=== PATIENT | female | born 1945 | race Caucasian/White ===

== ENCOUNTER 2016-08-30 06:26 | Emergency (ER) | payer OTHER ==
[2016-08-30 06:37] VITALS: BP 136/83; PULSE 72; TEMP 97.7; BMI 23.7
--- NOTE | 2016-08-30 07:03 | PDOC ---
History of Present Illness - General Chief Complaint: Pain Stated Complaint: RT ANKLE PAIN Time Seen by Provider: 08/30/16 06:58 History Source: Patient Exam Limitations: No Limitations - History of Present Illness Initial Comments: 08/30/16 06:58 The patient is a 70-year-old female, with no significant past medical history, presents to the emergency department with right lateral ankle pain for approximately one week. She states that the pain began acutely, while she was walking. It has been persistent ever since. It is a mild, dull ache. It is worsened by palpation and ambulation. She denies any twisting, trauma. She has applied ice frequently and take an intermittent Motrin, with little improvement. She denies distal weakness or paresthesias. She denies skin discoloration/rash. 08/30/16 06:58 Past History - Past Medical History Allergies/Adverse Reactions: Allergies Allergy/AdvReac Type Severity Reaction Status Date / Time Penicillins Allergy Severe Swelling Verified 08/02/14 10:40 shellfish derived Allergy Severe Swelling Verified 04/25/15 06:51 Home Medications: Ambulatory Orders Clonidine HCl 0.1 mg PO DAILY 04/23/15 Multivitamins [Multivit ([facility] Formul[facility])] 1 tab PO DAILY 04/23/15 Anemia: No Asthma: No Cancer: No Cardiac Disorders: No CVA: No COPD: No CHF: No Dementia: No Diabetes: No GI Disorders: No Disorders: No HTN: Yes Hypercholesterolemia: No Liver Disease: No Seizures: No Thyroid Disease: No - Surgical History Abdominal Surgery: No Appendectomy: No Cardiac Surgery: No Cholecystectomy: No Lung Surgery: No Neurologic Surgery: No Orthopedic Surgery: Yes (Bilateral Rotator Cuff Repair,3 SCREWS RT SHOULDER, Bilateral Bunionectomy) - Psycho/Social/Smoking Cessation Hx Anxiety: No Suicidal Ideation: No Smoking Status: No Smoking History: Former smoker Have you smoked in the past 12 months: No Number of Cigarettes Smoked Daily: 0 Information on smoking cessation initiated: No Hx Alcohol Use: No Drug/Substance Use Hx: No Substance Use Type: None Hx Substance Use Treatment: No Review of Systems - Review of Systems Comments:: 08/30/16 07:00 CONSTITUTIONAL: Absent: fever, chills, fatigue EYES: Absent: visual changes ENT: Absent: ear pain, sore throat CARDIOVASCULAR: Absent: chest pain, palpitations, loss of consciousness RESPIRATORY: Absent: cough, SOB GI: Absent: abdominal pain, nausea, vomiting, constipation, diarrhea GENITOURINARY: Absent: dysuria, frequency, hematuria MUSKULOSKELETAL: Present: See history of present illness SKIN: Absent: rash NEURO: Absent: headache, dizziness *Physical Exam - Vital Signs Last Vital Signs Temp Pulse Resp BP Pulse Ox 97.7 F 72 18 136/83 100 08/30/16 06:34 08/30/16 06:34 08/30/16 06:34 08/30/16 06:34 08/30/16 06:34 - Physical Exam Comments: 08/30/16 07:01 GENERAL: Well-appearing, well-nourished. No apparent distress. HEENT: Normocephalic, atraumatic. PERRL, EOM intact. CARDIOVASCULAR: Normal S1, S2. Regular rate and rhythm. PULMONARY: Clear to auscultation bilaterally. ABDOMEN: Soft, non-distended, non-tender. EXTREMITIES: Present: Mild tenderness to palpation over the distal, lateral malleolus. Soft tissue swelling over the distribution of the talofibular ligament, especially distally. Normal ROM in all four extremities. No gross deformities. SKIN: Warm, dry. No rash NEUROLOGICAL: No focal neurological deficits. Medical Decision Making - Medical Decision Making 08/30/16 07:02 The patient is well-appearing and in no acute distress Mechanism of injury is not concerning for fracture [place] foot and ankle rules, however, indicate a need for radiographic studies, secondary to the bony tenderness over the lateral malleolus I have ordered foot and ankle x-rays 08/30/16 07:38 X-ray emergency Department interpretation: No acute disease seen in the area where the patient has tenderness I have told her that she should have the orthopedist review the x-rays and consider further imaging Clinical impression: Talofibular ligament sprain I discussed the physical exam findings, ancillary test results and final diagnoses with the patient. I answered all of the patient's questions. The patient was satisfied with the care received and felt comfortable with the discharge plan and treatment plan. The patient will call their primary care physician within 24 hours to arrange follow-up and will return to the Emergency Department with any new, persistent or worsening symptoms. *DC/Admit/Observation/Transfer Diagnosis at time of Disposition: Ankle sprain - Discharge Dispostion Disposition: HOME Condition at time of disposition: Stable - Referrals Referrals: Chace Mendez MD [Staff Physician] - - Patient Instructions Printed Discharge Instructions: DI for Ankle Sprain Additional Instructions: Return to the emergency department immediately with ANY new, persistent or worsening symptoms. Please see Dr. Mendez as soon as possible for further evaluation. Please tell him that we obtained x-rays in the emergency department, as he will have access to these x-rays, and be able to review them himself. You MUST call and follow up with your doctor tomorrow. Please make sure your doctor reviews the results of your emergency department evaluation.
== END 2016-08-30 08:05 | disposition home or self-care (01) ==
LOC: FER 06:26
DX: S93.409A Sprain of unspecified ligament of unspecified ankle, initial encounter (principal); X58.XXXA Exposure to other specified factors, initial encounter; Y93.9 Activity, unspecified; Y92.9 Unspecified place or not applicable; Z87.891 Personal history of nicotine dependence; I10 Essential (primary) hypertension
CPT/HCPCS: 73610-TC-RT; 73630-TC-RT; 99282-25

== ENCOUNTER 2017-08-04 07:36 | Day surgery (SDC) | payer OTHER ==
[2017-07-24 11:30] VITALS: BMI 23.8
[2017-08-04] MEDS ORDERED: GENTAMICIN SULFATE 0.3% OPHTHALMIC (EYE DROPS) 5ML BOTTLE OS SCH (08:00)
[2017-08-04] MEDS ORDERED: PHENYLEPHRINE 2.5% OPHTH SOLN 15 ML BOTTLE OS SCH (08:00)
[2017-08-04] MEDS ORDERED: CYCLOPENTOLATE HCL 1% OPHTH SOLN 2 ML BOTTLE OS SCH (08:00)
[2017-08-04] MEDS ORDERED: TROPICAMIDE 1% OPHTH SOLN 15 ML BOTTLE OS SCH (08:00)
[2017-08-04] MEDS ORDERED: KETOROLAC TROMETHAMINE 0.5% 5 ML BOTTLE OPTHALMIC OS SCH (08:00)
[2017-08-04] MEDS ORDERED: LIDOCAINE HCL/EPINEPHRINE/PF 20 ML VIAL ONE (08:12)
[2017-08-04] MEDS: PHENYLEPHRINE 2.5% OPHTH SOLN 15 ML BOTTLE ONE ×5 (08:15→08:35)
[2017-08-04] MEDS: CYCLOPENTOLATE HCL 1% OPHTH SOLN 2 ML BOTTLE ONE ×5 (08:15→08:35)
[2017-08-04] MEDS: KETOROLAC TROMETHAMINE 0.5% 5 ML BOTTLE OPTHALMIC ONE ×5 (08:15→08:35)
[2017-08-04] MEDS: GENTAMICIN SULFATE 0.3% OPHTHALMIC (EYE DROPS) 5ML BOTTLE ONE ×5 (08:15→08:35)
[2017-08-04] MEDS: TROPICAMIDE 1% OPHTH SOLN 15 ML BOTTLE ONE ×5 (08:15→08:35)
[2017-08-04] MEDS ORDERED: NEO/POLYMYX B SULF/DEXAMETH OPHTHALMIC 5ML BOTTLE ONE (09:09)
[2017-08-04] MEDS ORDERED: MIDAZOLAM HCL 2 MG/2 ML SINGLE DOSE VIAL ONE (09:19)
[2017-08-04] MEDS ORDERED: ACETAMINOPHEN 325 MG TABLET (FP) PO PRN (09:26)
[2017-08-04] MEDS ORDERED: LIDO 2%/EPI 1:200000 PRESRVFRE (20 ML SDVIAL) INF ONE (09:59)
[2017-08-04] MEDS ORDERED: BUPIVACAINE HCL/PF 0.5% (5MG/ML) 10 ML VIAL IJ ONE (09:59)
[2017-08-04] MEDS ORDERED: TETRACAINE 0.5% OPHTH SOLN 2 ML BOTTLE OS ONE (10:17)
[2017-08-04] MEDS ORDERED: SODIUM HYALURONATE 8.5 MG/0.85 ML DISP.SYRIN IO ONE (10:18)
[2017-08-04] MEDS ORDERED: CHONDROITIN SU A/HYALUR SOD 1 KIT IO ONE (10:18)
[2017-08-04] MEDS ORDERED: NEO/POLYMYX B SULF/DEXAMETH OPHTHALMIC 5ML BOTTLE OS ONE (10:42)
[2017-08-04] MEDS ORDERED: BACITRACIN 3.5 GM OPTHALMIC OINT TUBE OS ONE (10:42)
[2017-08-04] MEDS ORDERED: BETAXOLOL HCL 0.25% OPHTHALMIC 10 ML DROPSBTL OS ONE (10:42)
[2017-08-04 11:34] VITALS: TEMP 97.6
--- NOTE | 2017-08-04 11:34 | OP ---
DATE OF OPERATION: 08/04/2017 PREOPERATIVE DIAGNOSIS: Cataract, left eye. POSTOPERATIVE DIAGNOSIS: Cataract, left eye. PROCEDURE: Cataract extraction via phacoemulsification with insertion of posterior chamber lens implant, left eye. SURGEON: Iker Nguyen MD LOCOMOTIVE CRANE ENGINEER: Ester Lee MD ANESTHESIA: Regional with sedation. COMPLICATIONS: None. ESTIMATED BLOOD LOSS: Less than 1 mL. SPECIMENS: None. DESCRIPTION OF PROCEDURE: The patient was identified in the holding area. After all risks, benefits, and alternatives were explained to the patient, informed consent was obtained. The left eye was marked with a marking pen. The patient entered the operating room on an eye stretcher. After formal time-out was performed, a 3 mL injection of equal parts 2% lidocaine with epinephrine and 0.5% Marcaine was given around the left eye. The left eye was then prepped and draped in the usual sterile fashion. An eyelid speculum was placed beneath the eyelid of the left eye. An inferotemporal paracentesis incision was created using [id number] blade. Viscoelastic was injected into the anterior chamber. A 2.4-mm keratome blade was then used to make a superotemporal incision. A 360-degree continuous curvilinear capsulorrhexis was then created using pancystotome and Utrata forceps. Hydrodissection was performed using balanced saline solution on a cannula. Phacoemulsification was introduced to disassemble and remove the nucleus in its entirety. Irrigation/aspiration was used to remove any remaining cortical material from the eye. The capsular bag was reformed using viscoelastic. An Chema Model [id number] with a power of 18.5 diopter serial number [id number] was inspected and found to be defect free and injected into the capsular bag. Irrigation/aspiration was used to remove any remaining viscoelastic from the eye. The anterior chamber was reformed using balanced saline solution. Intracameral injections of Miochol and Miostat were then administered, and the pupil came down and was round. All wounds were hydrated with balanced saline solution and noted to be watertight. The anterior chamber was deep. The lens was perfectly centered in the capsular bag. The eye had an adequate pressure, and there was a red reflex present. All wounds were hydrated with balanced saline solution and noted to be watertight. Topical antibiotic eyedrops and ointment were then administered to the left eye. The eyelid speculum was removed from the left eye. The left eye was patched and shielded. The patient tolerated the procedure well and left the operating room in stable condition to follow up in the eye clinic tomorrow morning at 9 o'clock. IKER NGUYEN M.D. [id number]
[2017-08-04 11:37] VITALS: BP 130/76; PULSE 64
== END 2017-08-04 11:35 | disposition home or self-care (01) ==
LOC: FASU 07:36
PROVIDERS: ATTEND Ophthalmology
PROC: 08RK3JZ Replacement of Left Lens with Synthetic Substitute, Percutaneous Approach (ICD-10-PCS; principal; 2017-08-04 10:16)
DX: H26.9 Unspecified cataract (principal)

== ENCOUNTER 2017-10-13 07:06 | Day surgery (SDC) | payer OTHER ==
[2017-10-05 09:47] VITALS: BMI 24.2
[2017-10-13] MEDS: TROPICAMIDE 1% OPHTH SOLN 15 ML BOTTLE ONE ×5 (07:40→08:00)
[2017-10-13] MEDS: CYCLOPENTOLATE HCL 1% OPHTH SOLN 2 ML BOTTLE ONE ×5 (07:40→08:00)
[2017-10-13] MEDS: KETOROLAC TROMETHAMINE 0.5% 5 ML BOTTLE OPTHALMIC ONE ×5 (07:40→08:00)
[2017-10-13] MEDS: PHENYLEPHRINE 2.5% OPHTH SOLN 15 ML BOTTLE ONE ×5 (07:40→08:00)
[2017-10-13] MEDS: GENTAMICIN SULFATE 0.3% OPHTHALMIC (EYE DROPS) 5ML BOTTLE ONE ×5 (07:40→08:00)
[2017-10-13] MEDS ORDERED: GENTAMICIN SULFATE 0.3% OPHTHALMIC (EYE DROPS) 5ML BOTTLE OD SCH (08:00)
[2017-10-13] MEDS ORDERED: TROPICAMIDE 1% OPHTH SOLN 15 ML BOTTLE OD SCH (08:00)
[2017-10-13] MEDS ORDERED: KETOROLAC TROMETHAMINE 0.5% 5 ML BOTTLE OPTHALMIC OD SCH (08:00)
[2017-10-13] MEDS ORDERED: CYCLOPENTOLATE HCL 1% OPHTH SOLN 2 ML BOTTLE OD SCH (08:00)
[2017-10-13] MEDS ORDERED: PHENYLEPHRINE 2.5% OPHTH SOLN 15 ML BOTTLE OD SCH (08:00)
[2017-10-13] MEDS ORDERED: BETAXOLOL HCL 0.25% OPHTHALMIC 10 ML DROPSBTL ONE (09:10)
[2017-10-13] MEDS ORDERED: BACITRACIN/POLYMYXIN OPH OINT 3.5 GM TUBE ONE (09:10)
[2017-10-13] MEDS ORDERED: TETRACAINE 0.5% OPHTH SOLN 2 ML BOTTLE ONE (09:10)
[2017-10-13] MEDS ORDERED: EPI-SHUGARCAINE (EPINEPHRINE 0.025% & LIDOCAINE-PF 0.75%) 4ML ONE (09:10)
[2017-10-13] MEDS ORDERED: POVIDONE-IODINE 5% OPHTHALMIC PREP 30 ML SOLUTION ONE (09:11)
[2017-10-13] MEDS ORDERED: NEO/POLYMYX B SULF/DEXAMETH OPHTHALMIC 5ML BOTTLE ONE (09:11)
[2017-10-13] MEDS ORDERED: ACETYLCHOLINE 1:100 INTRA-OCUL 20 MG/2 ML KIT ONE (09:11)
[2017-10-13] MEDS ORDERED: MIDAZOLAM HCL 2 MG/2 ML SINGLE DOSE VIAL ONE (09:34)
[2017-10-13] MEDS ORDERED: BSS (NA/CA/MG/K) BALANCED SALT SOLUTION OPHTH SOLN 15 ML BOTTLE ONE (10:23)
[2017-10-13] MEDS ORDERED: ACETAMINOPHEN 325 MG TABLET (FP) PO PRN (10:35)
--- NOTE | 2017-10-13 11:10 | OP ---
DATE OF OPERATION: 10/13/2017 PREOPERATIVE DIAGNOSIS: Cataract, right eye. POSTOPERATIVE DIAGNOSIS: Cataract, right eye. PROCEDURE: Cataract extraction via phacoemulsification with insertion of posterior chamber lens implant, right eye. SURGEON: Iker Nguyen MD DISH WASHER: Ester Lee MD ANESTHESIA: Topical with sedation. ESTIMATED BLOOD LOSS: Less than 1 mL. SPECIMENS: None. COMPLICATIONS: None. DESCRIPTION OF PROCEDURE: The patient was identified in the holding area. After all risks, benefits, and alternatives were explained to the patient, informed consent was obtained. The right eye was marked with a marking pen. The patient then entered the operating room on an eye stretcher. After a formal timeout was performed, tetracaine eye drops were instilled onto the right eye. The right eye was then prepped and draped in the usual sterile fashion. An eyelid speculum was placed beneath the eyelids of the right eye. A superotemporal paracentesis incision was created using a 15-degree blade. Preservative-free intracameral epinephrine and lidocaine were then administered. Viscoelastic was then administered to the anterior chamber. An inferotemporal incision was created using a 2.4-mm keratome blade. A 360-degree, continuous curvilinear capsulorrhexis was then created using bent cystotome and Utrata forceps. Hydrodissection was performed using balanced saline solution on a cannula. Phacoemulsification was introduced to disassemble and remove the nucleus in its entirety. Irrigation/aspiration was then used to remove any remaining cortical material from the eye. The capsular bag was reformed using viscoelastic. An Chema model [id number] with a power of 17.5 diopters, serial number [id number] was inspected and found to be defect free and injected into the capsular bag. Irrigation/aspiration was used to remove any remaining viscoelastic from the eye. The anterior chamber was reformed using balanced saline solution. Intracameral injections of Miochol and Miostat were then administered, and the pupil came down and was round. All wounds were hydrated with balanced saline solution, noted to be watertight. There was a red reflex present. The lens was perfectly centered in the capsular bag. The eye had an adequate pressure, and the anterior chamber was deep. Topical antibiotic eye drops and ointment were then administered to the right eye. The eyelid speculum was removed from the right eye. The right eye was shielded. The patient tolerated the procedure well and left the operating room in stable condition to follow up in the eye clinic tomorrow morning at 9:00. IKER NGUYEN M.D. [id number]
[2017-10-13 11:20] VITALS: TEMP 98.1
[2017-10-13 11:21] VITALS: BP 149/86; PULSE 66
== END 2017-10-13 11:15 | disposition home or self-care (01) ==
LOC: FASU 07:06
PROVIDERS: ATTEND Ophthalmology
PROC: 08RJ3JZ Replacement of Right Lens with Synthetic Substitute, Percutaneous Approach (ICD-10-PCS; principal; 2017-10-13 09:53)
DX: H26.9 Unspecified cataract (principal)

== ENCOUNTER 2018-04-01 08:00 | Inpatient (IN) | payer OTHER ==
--- NOTE | 2018-04-01 07:33 | HP ---
Admitting History and Physical - Admission Chief Complaint: right knee osteoarthritis x years History of Present Illness: 72 year old female presents today in regard to her right knee. Longstanding history of right knee osteoarthritis. Patient complains of pain, limited ROM, difficulty ambulating and difficulty completing ADLs. Patient has failed all conservative treatment measures including PO medications, activity modification , injections and exercise programs. At this point, patient would like to proceed with surgical intervention - right total knee arthroplasty, MAKOplasty. History Source: Patient - Past Medical History Cardiovascular: Yes: HTN ...: No - Past Surgical History Additional Past Surgical History: See written history & physical. - Smoking History Smoking history: Former smoker Have you smoked in the past 12 months: No Aproximately how many cigarettes per day: 20 If you are a former smoker, when did you quit?: 2004 - Alcohol/Substance Use Hx Alcohol Use: No Home Medications - Allergies Allergies/Adverse Reactions: Allergies Allergy/AdvReac Type Severity Reaction Status Date / Time Penicillins Allergy Severe Swelling Verified 03/11/18 12:26 shellfish derived Allergy Severe Swelling Verified 03/11/18 12:26 - Home Medications Home Medications: Ambulatory Orders Clonidine HCl 0.1 mg PO DAILY 04/23/15 Multivitamins [Multivit ([facility] Formul[facility])] 1 tab PO DAILY 04/23/15 Review of Systems - Review of Systems Musculoskeletal: reports: Crepitus (right knee), Decreased ROM (right knee), Joint Pain (right knee), Joint Swelling (right knee) Physical Examination Constitutional: Yes: Well Nourished, No Distress Eyes: Yes: Conjunctiva Clear HENT: Yes: Atraumatic, Normocephalic Neck: Yes: Supple Cardiovascular: Yes: Regular Rate and Rhythm Respiratory: Yes: Regular Gastrointestinal: Yes: Soft ...Rectal Exam: Yes: Deferred Musculoskeletal: Yes: Joint Stiffness (right knee), Joint Swelling (right knee) Assessment/Plan 72 year old female presents today in regard to her right knee. Longstanding history of right knee osteoarthritis. Patient complains of pain, limited ROM, difficulty ambulating and difficulty completing ADLs. Patient has failed all conservative treatment measures including PO medications, activity modification , injections and exercise programs. At this point, patient would like to proceed with surgical intervention - right total knee arthroplasty, MAKOplasty. Pros, cons, risks, benefits and alternatives of a right total knee arthroplasty - MAKOplasty were discussed with the patient at length. Patient confirms her understanding and consents to proceed with a right total knee arthroplasty - MAKOplasty.
[~2018-04-01 08:00] MED LIST: CEFAZOLIN 2 GM in DEXTROSE 5%-WATER - 50 ML IVPB ONE; CELECOXIB 200 MG CAPSULE PO ONE; GABAPENTIN 300 MG CAPSULE (FP) PO ONE; PANTOPRAZOLE 40 MG TABLET (FP) PO ONE; ROPIVICAINE 0.2%/MORPH PF/KETOROLAC - 51ML DISP.SYRINGE IA ONE; TRANEXAMIC ACID 1000 MG/10 ML VIAL IVPUSH ONE; oxyCODONE HCL 10 MG SUSTAINED ACTING TABLET PO ONE
[2018-04-01] MEDS ORDERED: CELECOXIB 200 MG CAPSULE ONE (09:31)
[2018-04-01 09:35] VITALS: BMI 25.2
[2018-04-01] MEDS ORDERED: MIDAZOLAM HCL 2 MG/2 ML SINGLE DOSE VIAL ONE (11:52)
[2018-04-01] MEDS ORDERED: BUPIVACAINE LIPOSOME/PF (EXPAREL) 266 MG/20 ML VIAL ONE (11:52)
[2018-04-01] MEDS ORDERED: BUPIVACAINE HCL/PF (5 MG/ML) 30 ML VIAL IJ ONE (11:53)
[2018-04-01] MEDS ORDERED: SODIUM CHLORIDE 0.9% P/F 10 ML VIAL IJ ONE ×2 (11:53→15:11)
[2018-04-01] MEDS ORDERED: SUCCINYLCHOLINE CHLORIDE 200 MG/10 ML VIAL ONE (14:03)
[2018-04-01] MEDS ORDERED: ePHEDrine SULFATE 50 MG/1 ML AMPULE ONE (14:04)
[2018-04-01] MEDS ORDERED: ceFAZolin SODIUM 1 GM VIAL ONE (15:04)
[2018-04-01] MEDS ORDERED: TRANEXAMIC ACID 1000 MG/10 ML VIAL ONE (15:10)
[2018-04-01] MEDS ORDERED: LIDOCAINE HCL/PF 2% SDV 5ML VIAL ONE (15:10)
[2018-04-01] MEDS ORDERED: oxyCODONE HCL 5 MG TABLET PO PRN (15:52)
[2018-04-01] MEDS ORDERED: ONDANSETRON 4 MG/2 ML VIAL IVPUSH PRN ×2 (15:52→18:44)
[2018-04-01] MEDS ORDERED: ACETAMINOPHEN 325 MG TABLET (FP) PO SCH (16:00)
[2018-04-01] MEDS ORDERED: LACTATED RINGERS SOLUTION 1,000 ML IV SCH ×2 (16:00→18:45)
[2018-04-01] MEDS ORDERED: PROPOFOL 20 ML ONE (16:00)
[2018-04-01] MEDS ORDERED: VANCOMYCIN 1,000 MG VIAL (RESTRICTED TO ID ONLY) IVPB ONE (16:05)
[2018-04-01] MEDS ORDERED: TRANEXAMIC ACID 1000 MG/10 ML VIAL IVPB ONE (16:06)
[2018-04-01] MEDS ORDERED: ACETAMINOPHEN INJECTION 100 ML IVPB ONE (17:39)
[2018-04-01] MEDS ORDERED: KETOROLAC TROMETHAMINE 30 MG/1 ML VIAL ONE (17:39)
[2018-04-01] MEDS ORDERED: traMADol HCL 50 MG TABLET ONE (17:40)
[2018-04-01] MEDS ORDERED: ACETAMINOPHEN 1000 MG/100 ML VIAL (NON FORMULARY) IVPB ONE ×2 (18:34→18:41)
--- NOTE | 2018-04-01 18:34 | OP ---
Operative Note - Note: Operative Date: 04/01/18 Pre-Operative Diagnosis: right knee OA Operation: right TKA SAE Surgeon: Jude Dong Head Field Hockey Coach: Heather Kerr Estimated Blood Loss (mls): 100
[2018-04-01] MEDS ORDERED: KETOROLAC TROMETHAMINE 15 MG/ML VIAL IVPUSH ONE (18:35)
[2018-04-01] MEDS ORDERED: MAGNESIUM HYDROX 2400MG/30ML ORAL SUSPENSION 30 ML CUP PO PRN (18:44)
[2018-04-01] MEDS ORDERED: MAG HYDROX/AL HYDROX/SIMETH 30 ML UNIT-DOSE CUP PO PRN (18:44)
[2018-04-01] MEDS ORDERED: traMADol HCL 50 MG TABLET PO ONE (18:50)
[2018-04-01] MEDS: GABAPENTIN 300 MG CAPSULE (FP) PO SCH (21:42)
[2018-04-01] MEDS: SENNOSIDES/DOCUSATE COMBO (SENNA PLUS) TABLET (UD) PO SCH (21:43)
[2018-04-01] MEDS: CELECOXIB 200 MG CAPSULE PO SCH (21:43)
[2018-04-01] MEDS: ASCORBIC ACID 500 MG TABLET (FP) PO SCH (21:43)
[2018-04-01] MEDS ORDERED: GABAPENTIN 300 MG CAPSULE (FP) PO SCH (22:00)
[2018-04-01] MEDS: oxyCODONE HCL 5 MG TABLET PO PRN (22:44)
[2018-04-02] MEDS: traMADol HCL 50 MG TABLET PO SCH ×4 (00:22→18:10)
[2018-04-02] MEDS: ACETAMINOPHEN 325 MG TABLET (FP) PO SCH ×4 (00:23→18:10)
[2018-04-02] MEDS: KETOROLAC TROMETHAMINE 30 MG/1 ML VIAL IVPUSH SCH ×4 (00:24→12:58)
[2018-04-02] MEDS ORDERED: DEXAMETHASONE SOD PHOSPHATE 10 MG/1 ML VIAL IVPB ONE (02:00)
[2018-04-02] MEDS: CEFAZOLIN 1 GM/D5W 1 GM/50 ML BAG IVPB SCH ×2 (02:05→09:53)
[2018-04-02] MEDS: ASPIRIN 325 MG TABLET PO SCH (08:27)
[2018-04-02 08:42] LABS: HEMOGLOBIN 11.7 GM/dl (10.7-15.3); MCH 32.7 pg (25.7-33.7); MCHC 34.4 g/dl (32.0-36.0); MEAN CELL VOLUME 95.2 fl (80-96); PLATELET COUNT 392 K/MM3 (134-434); RBC 3.58 M/mm3 (3.60-5.2); RDW 11.5 % (11.6-15.6); WHITE BLOOD COUNT 12.8 K/mm3 (4.0-10.8)
[2018-04-02 08:50] LABS: ANION GAP 12 MMOL/L (8-16); BLOOD UREA NITROGEN 12 mg/dl (7-18); CHLORIDE 101 mmol/L (98-107); CO2 23 mmol/L (22-28); GLUCOSE,RANDOM 161 mg/dl (74-106); POTASSIUM 4.6 mmol/L (3.5-5.1); SODIUM 136 mmol/L (136-145)
[2018-04-02] MEDS: GABAPENTIN 300 MG CAPSULE (FP) PO SCH ×2 (09:51→21:50)
[2018-04-02] MEDS: CELECOXIB 200 MG CAPSULE PO SCH ×2 (09:52→21:51)
[2018-04-02] MEDS: PANTOPRAZOLE 40 MG TABLET (FP) PO SCH (09:52)
[2018-04-02] MEDS: ASCORBIC ACID 500 MG TABLET (FP) PO SCH ×2 (09:52→21:51)
[2018-04-02] MEDS: SENNOSIDES/DOCUSATE COMBO (SENNA PLUS) TABLET (UD) PO SCH ×2 (09:52→21:50)
[2018-04-02] MEDS: cloNIDine HCL 0.1 MG TABLET PO SCH (09:53)
[2018-04-02] MEDS: oxyCODONE HCL 5 MG TABLET PO PRN (09:54)
[2018-04-02] MEDS: MULTIVITAMINS (DAILY MVI) TABLET (FP) PO SCH (09:54)
[2018-04-02] MEDS ORDERED: MULTIVITAMINS (DAILY MVI) TABLET (FP) PO SCH (10:00)
--- NOTE | 2018-04-02 10:50 | PN ---
Progress Note, Physician Chief Complaint: s/p right total knee replacement under spinal anesthesia History of Present Illness: post op day one, adductor canal block for post op pain - Current Medication List Current Medications: Active Medications Acetaminophen (Tylenol -) 650 mg PO Q6H [facility] Stop: 04/04/18 00:00 Last Admin: 04/02/18 05:56 Dose: 650 mg Al Hydroxide/Mg Hydroxide (Mylanta Oral Suspension -) 30 ml PO Q4H PRN PRN Reason: DYSPEPSIA Ascorbic Acid (Vitamin C -) 500 mg PO BID [facility] Last Admin: 04/02/18 09:52 Dose: 500 mg Aspirin (Asa -) 325 mg PO DAILY@0800 [facility] Last Admin: 04/02/18 08:27 Dose: 325 mg Celecoxib (Celebrex -) 200 mg PO BID [facility] Last Admin: 04/02/18 09:52 Dose: 200 mg Clonidine (Catapres -) 0.1 mg PO DAILY [facility] Last Admin: 04/02/18 09:53 Dose: 0.1 mg Gabapentin (Neurontin -) 300 mg PO BID [facility] Last Admin: 04/02/18 09:51 Dose: 300 mg Lactated Ringer's (Lactated Ringers Solution) 1,000 mls @ 125 mls/hr IV ASDIR [facility] Ketorolac Tromethamine (Toradol Injection -) 15 mg IVPUSH Q6H [facility] Stop: 04/02/18 12:46 Last Admin: 04/02/18 05:55 Dose: 15 mg Magnesium Hydroxide (Milk Of Magnesia -) 30 ml PO PRN PRN PRN Reason: CONSTIPATION Multivitamins/Minerals/Vitamin C (Tab-A-Vit -) 1 tab PO DAILY [facility] Last Admin: 04/02/18 09:54 Dose: 1 tab Ondansetron HCl (Zofran Injection) 4 mg IVPUSH Q6H PRN PRN Reason: NAUSEA AND/OR VOMITING Oxycodone HCl (Roxicodone -) 5 mg PO Q3H PRN PRN Reason: PAIN LEVEL 1-5 Oxycodone HCl (Roxicodone -) 10 mg PO Q3H PRN PRN Reason: PAIN LEVEL 6-10 Last Admin: 04/02/18 09:54 Dose: 10 mg Pantoprazole Sodium (Protonix -) 40 mg PO DAILY [facility] Last Admin: 04/02/18 09:52 Dose: 40 mg Senna/Docusate Sodium (Pericolace -) 1 tablet PO BID [facility] Last Admin: 04/02/18 09:52 Dose: 1 tablet Tramadol HCl (Ultram -) 50 mg PO Q6HPO [facility] Last Admin: 04/02/18 05:57 Dose: 50 mg - Objective Vital Signs: Vital Signs Temperature 98.2 F 04/02/18 05:31 Pulse Rate 62 04/02/18 05:31 Respiratory Rate 18 04/02/18 05:31 Blood Pressure 114/66 04/02/18 05:31 O2 Sat by Pulse Oximetry (%) 97 04/02/18 05:31 Constitutional: Yes: Well Nourished Cardiovascular: Yes: WNL Respiratory: Yes: WNL Gastrointestinal: Yes: WNL Labs: CBC, BMP 04/02/18 07:20 04/02/18 07:20 Assessment/Plan No adverse effect from anesthetic, dept of anesthesia will sign off care at this time.
--- NOTE | 2018-04-02 16:21 | SURG ---
Surgery Peoplesoft Consultant Note Peoplesoft Consultant: Heather Kerr PA-C Date of Service: 04/01/18 Diagnosis: right knee OA Procedure: right TKA SAE Fallon was present for the entirety of the operative procedure. For further detail, please refer to operative report. Visit type - Case Type Case Type: Scheduled - Emergency Emergency Visit: No - New patient This patient is new to me today: Yes Date on this admission: 04/02/18
--- NOTE | 2018-04-02 21:25 | PN ---
Progress Note (short form) - Note Progress Note: Pt seen and examined. Doing well. Has not voided yet. Block wearing off - is able to straight leg raise. AVSS Selected Entries 04/02/18 04/02/18 17:00 20:38 Temperature 97.8 F Pulse Rate 66 Respiratory 16 Rate Blood Pressure 120/68 O2 Sat by Pulse 98 Oximetry (%) Oxygen Delivery Room Air Method Laboratory Tests 04/02/18 04/02/18 07:20 07:20 WBC 12.8 H Hgb 11.7 Hct 34.0 D Plt Count 392 Sodium 136 Potassium 4.6 Chloride 101 Carbon Dioxide 23 Anion Gap 12 BUN 12 Creatinine 1.0 Creat Clearance w eGFR 54.35 Random Glucose 161 H D Calcium 9.0 Gen: NAD RLE: c/d/i, able to SLR, NVID distally A/P s/p R TKA PT/OOB - WBAT. May be able to maintain quad strength in the AM. If not , ambulate with knee brace. D/C to rehab in AM. F/U in office in 10-14 days.
--- NOTE | 2018-04-02 21:32 | DS ---
Physical Examination Vital Signs: Vital Signs Temperature 97.8 F 04/02/18 21:15 Pulse Rate 17 L 04/02/18 21:15 Respiratory Rate 17 04/02/18 21:15 Blood Pressure 118/58 04/02/18 21:15 O2 Sat by Pulse Oximetry (%) 98 04/02/18 21:15 Labs: CBC, BMP 04/02/18 07:20 04/02/18 07:20 Discharge Summary Reason For Visit: RIGHT KNEE OSTEOARTHRITIS Current Active Problems Osteoarthritis of right knee (Acute) Procedures: Principal: right knee replacement Hospital Course: Admitted for elective surgery. Procedure performed without complications. Pt received postoperative antibiotic prophylaxis and DVT ppx. Ambulated with physical therapy. Stable for discharge to rehab facility with outpatient followup. Condition: Stable - Instructions Diet, Activity, Other Instructions: Dr. Lou - Knee Replacement Instructions Keep the Aquacel dressing on until removed by Dr. Lou in 10-14 days - it is antibacterial and waterproof and you can shower with it on. DO NOT REMOVE AQUACEL DRESSING AT REHAB FACILITY WITHOUT PERMISSION FROM DR. LOU! KEEP THE DRESSING ON TO REDUCE INFECTION RISK! Call the office for a follow-up appointment with Dr. Lou in 10-14 days. [phone] Take one Aspirin 325mg daily for 6 weeks to prevent blood clots in your legs. Take one Pantoprazole 40mg daily for 6 weeks to protect against heartburn and ulcers. Take Cephalexin (antibiotic) 3x/day for 10 days to help prevent skin infection. Take Celebrex 200mg daily for 30 days to reduce swelling and inflammation. Take a multivitamin, stool softener, and extra Vitamin C supplement daily. For pain: *Mild pain (1-3/10): Take 1 Tramadol tablet every 4 hours as needed. Moderate pain (4-6/10): Take 1 Tramadol tablet and 1 Percocet tablet every 4 hours as needed. Severe pain (7-10/10): Take 1 Tramadol tablet and 2 Percocet tablets every 4 hours as needed. Activity: You can put as much weight on the operative leg as you want. After you get home from rehab, there will be a physical therapist coming to your house to help you walk around and bend/straighten your knee. After your follow-up appointment with Dr. Lou, you will be sent for more intensive outpatient physical therapy which will include machines and equipment that the home therapist cannot bring to your house. Always use a walker or cane for balance and to prevent falls. Expect to see swelling/bruising from the operative site all the way down to your toes. Wear the compression stocking on the operative side during the day to minimize how much swelling there is in your foot/ankle. Don't wear the stocking at night. You don't have to wear a stocking on the other side. Disposition: LONG TERM FACILITY - Home Medications Comprehensive Discharge Medication List: Ambulatory Orders Clonidine HCl 0.1 mg PO DAILY 04/23/15 Multivitamins [Multivit ([facility] Formul[facility])] 1 tab PO DAILY 04/23/15 Ascorbic Acid [Vitamin C -] 500 mg PO BID tablet 04/02/18 Aspirin [ASA -] 325 mg PO DAILY@0800 tablet 04/02/18 Celecoxib [CeleBREX -] 200 mg PO DAILY #30 capsule 04/02/18 Cephalexin Monohydrate [Keflex -] 500 mg PO TID #30 capsule 04/02/18 Oxycodone HCl/Acetaminophen [Percocet 5-325 mg Tablet] 1 - 2 tab PO Q4H PRN #60 tablet MDD 10 04/02/18 Pantoprazole Sodium [Protonix -] 40 mg PO DAILY #40 tablet.ec 04/02/18 Sennosides/Docusate Sodium [Pericolace -] 1 tablet PO BID tablet 04/02/18 traMADol HCL [Ultram -] 50 mg PO Q4H PRN #42 tablet MDD 6 04/02/18
[2018-04-03] MEDS: ACETAMINOPHEN 325 MG TABLET (FP) PO SCH ×2 (00:04→06:15)
[2018-04-03] MEDS: traMADol HCL 50 MG TABLET PO SCH ×2 (00:04→06:15)
[2018-04-03 07:06] VITALS: BP 122/57; PULSE 64; TEMP 97.7
[2018-04-03] MEDS: ASPIRIN 325 MG TABLET PO SCH (08:00)
[2018-04-03 08:32] LABS: HEMATOCRIT 34.5 % (32.4-45.2); HEMOGLOBIN 11.2 GM/dl (10.7-15.3); MCH 31.2 pg (25.7-33.7); MCHC 32.6 g/dl (32.0-36.0); MEAN CELL VOLUME 95.8 fl (80-96); MEAN PLT VOLUME 7.4 fl (7.5-11.1); PLATELET COUNT 443 K/MM3 (134-434); RDW 11.4 % (11.6-15.6); WHITE BLOOD COUNT 12.8 K/mm3 (4.0-10.8)
[2018-04-03] MEDS: MULTIVITAMINS (DAILY MVI) TABLET (FP) PO SCH (10:19)
[2018-04-03] MEDS: CELECOXIB 200 MG CAPSULE PO SCH (10:19)
[2018-04-03] MEDS: cloNIDine HCL 0.1 MG TABLET PO SCH (10:19)
[2018-04-03] MEDS: GABAPENTIN 300 MG CAPSULE (FP) PO SCH (10:19)
[2018-04-03] MEDS: PANTOPRAZOLE 40 MG TABLET (FP) PO SCH (10:19)
[2018-04-03] MEDS: SENNOSIDES/DOCUSATE COMBO (SENNA PLUS) TABLET (UD) PO SCH (10:19)
[2018-04-03] MEDS: ASCORBIC ACID 500 MG TABLET (FP) PO SCH (10:20)
--- NOTE | 2018-04-12 10:28 | PATH ---
Surgical Pathology Report Patient Name: CEE HUNG Med. Rec. #: [id number] /Age/Gender: 1945 (Age: 72) / F Account: [id number] Location: [facility] Taken: 04/01/2018 Received: 04/01/2018 Reported: 04/05/2018 Physicians: Jude Dong M.D. Specimen(s) Received BONE OF RIGHT KNEE Clinical History Right knee osteoarthritis Final Diagnosis BONE, KNEE, RIGHT, TOTAL KNEE REPLACEMENT MAKOPLASTY: BONE WITH DEGENERATIVE JOINT DISEASE, DENSE FIBROCONNECTIVE TISSUE, AND FIBROADIPOSE TISSUE. Electronically Signed Kylie Glass M.D. Gross Description Received in formalin labeled "bone of right knee," is an 11.0 x 7.5 x 2.0 cm aggregate of multiple portions of bone and soft tissue. The tibial plateau measures 7.0 x 5.3 x 1.5 cm. There is a 1.3 cm in greatest dimension area of eburnation present. The remaining articular surface is zamorano-brown and diffusely granular. The underlying trabecular bone is yellow and hard. [employer] Manager sections are submitted in one cassette, following decalcification. 04/02/201804/02/2018
--- NOTE | 2018-04-13 13:32 | SPEC ---
DATE OF OPERATION: 04/01/2018 PREOPERATIVE DIAGNOSIS: Right knee osteoarthritis. POSTOPERATIVE DIAGNOSIS: Right knee osteoarthritis. PROCEDURE: Right total knee arthroscopy with MAKOplasty robotic navigation. ATTENDING SURGEON: Renetta Lou MD MECHANOTHERAPIST: DAVID Nelson ANESTHESIA: Spinal plus sedation. ESTIMATED BLOOD LOSS: 100 mL. COMPLICATIONS: None. DISPOSITION: The patient was transferred to the PACU in stable condition. IMPLANTS USED: [place] Triathlon size 3 femoral component, size 2 tibial component, 13-mm total stabilized polyethylene component, 29-mm patellar component. INDICATIONS: This is a 72-year-old female who presented to the office complaining of severe right knee pain. She was seen and examined by Dr. Lou and diagnosed with severe right knee osteoarthritis. The patient was initially treated nonoperatively with injections, medications, and physical therapy but continues to have severe pain and ambulatory dysfunction. She was, therefore, indicated for a right total knee replacement with MAKOplasty robotic navigation. The risks, benefits, and alternatives to the surgery were explained to the patient in greater detail, and she elected to proceed with the procedure. DESCRIPTION OF PROCEDURE: On the day of surgery, the patient was taken to the operating room and placed on the OR table. Spinal anesthesia was administered by the anesthesiologist. The patient was then positioned supine on the table and all bony prominences were padded. The knee was then prepped and draped in the usual sterile fashion and intravenous antibiotics were given for infection prophylaxis. A surgical time-out was then performed with the team, and the patients identity, procedure, side, availability of implants, and the administration of antibiotics was confirmed. With the knee flexed, a midline incision was made and carried down through the subcutaneous fat to the underlying retinaculum. A medial parapatellar arthrotomy was performed. This was followed by a subperiosteal dissection of the tissue off the proximal, medial tibia. A portion of fat pad was removed from under the patellar tendon, and a small portion of fat was excised off the distal supracondylar femur. Electrocautery and an Aquamantys bipolar sealing device were used to achieve hemostasis. The knee was then flexed further, and the anterior horn of the lateral meniscus was released from the midline. Next, the anterior and posterior cruciate ligaments were transected. Grade 4 changes were noted diffusely throughout the knee. Femoral and tibial checkpoints were then placed in the appropriate location using a mallet. Two parallel bicortical self-drilling pins were placed in the tibial diaphysis after making stab incisions and bluntly dissecting down to bone. Two pins were then placed in the distal supracondylar femur. The [employer] navigation arrays were then attached to both the femoral and tibial pins and the lower extremity was then registered to the robotic navigation device using various joint movements, as well as inputting several dozen reference points. The knee was then taken through a full range of motion with a corrective force applied. Alignment in varus/valgus as well as flexion/extension and soft tissue balance was measured in various positions. The navigation device showed a numerical and graphic representation of the soft tissue balance. The components were repositioned virtually using the software until optimal soft tissue balance was achieved on screen. Once this was accomplished, the final plan was saved and sent to the robot. Self-retaining retractors were then placed at the joint line for exposure and protection of the collateral ligaments. The robot was brought into the sterile field and registered with the navigation device. The robotic arm with attached oscillating saw blade was then used to perform femoral and tibial bone cuts as per the saved software plan. The femoral box cut was made using the appropriately sized manual cutting guide. The knee was then irrigated. Trial components were placed, and the knee was taken through a full range of motion to assess soft tissue balance and alignment. The range of motion was found to be excellent and the soft tissue balance was optimal and according to plan. The knee was then put into extension and the patella everted. The synovium around the patella was circumscribed with electrocautery. A caliper was used to measure the patellar thickness and a saw was then used to resect the patella at the chondro-osseous junction. The cut surface was then sized and drilled for the appropriate patellar button, with care taken to medialize it. A trial patella was then placed, and the knee was again taken through a full range of motion. The knee was found to have both good balance and good patellar tracking. All of the components were removed except the tibial base plate. The appropriate instrumentation was used to drill and punch the proximal tibia for the keel of the final component. All bony surfaces were then cleaned with pulsatile lavage and dried. Bone cement was then prepared on the back table, and final components were cemented in place in the usual fashion. Extruded cement was removed. The polyethylene trial was placed, the knee was put into extension, and axial pressure was applied for compression while the cement hardened. The patellar button was similarly cemented into place. Once the cement had hardened, the knee was taken through a full range of motion to assess stability, balance, and patellar tracking. This was found to be optimal and the trial polyethylene was exchanged for the appropriately sized real implant. The wound was then thoroughly irrigated with normal saline. A 3-minute dilute Betadine lavage was performed. The knee was again irrigated using a pulsatile lavage device. A periarticular injection was used to locally infiltrate the capsular tissues surrounding the implant and prosthesis. Then No. 1 Polysorb and 0 V-Lock 180 barbed sutures were used to close the arthrotomy. Then No. 1 Polysorb and 2-0 V-Lock 90 sutures were used in the subcutaneous tissues. Then 4-0 undyed Vicryl and Dermabond skin adhesive was used to close the stab incisions made for the navigation pins. The skin was closed using both 3-0 V-Lock 90 suture in a running subcuticular fashion and Dermabond skin adhesive. Once this was completed a sterile Aquacel dressing and compressive Vincenzo-wrap was applied. The patient was then awakened and taken to the PACU in stable condition. RENETTA LOU M.D. [id number]
== END 2018-04-03 17:30 | DRG 470 ==
LOC: FM/S 08:25
PROVIDERS: ADMIT Student in an Organized Health Care Education/Training Program; ATTEND Student in an Organized Health Care Education/Training Program
PROC: 8E0Y0CZ Robotic Assisted Procedure of Lower Extremity, Open Approach (ICD-10-PCS; 2018-04-01)
PROC: 0SRC0JZ Replacement of Right Knee Joint with Synthetic Substitute, Open Approach (ICD-10-PCS; principal; 2018-04-01 15:30)
DX: M17.11 Unilateral primary osteoarthritis, right knee (principal); I10 Essential (primary) hypertension; Z87.891 Personal history of nicotine dependence
CPT/HCPCS: 36415; 73560-TC-RT-FY; 80048; 85027; 88305-TC; 88311-TC; 94760; 97116-GP; 97162-GP; J0131; J0735; J1100

== ENCOUNTER 2018-05-03 10:43 | Inpatient (IN) | payer OTHER ==
--- NOTE | 2018-05-03 12:03 | PDOC ---
History of Present Illness - General Chief Complaint: Injury Stated Complaint: RT KNEE INJURY Time Seen by Provider: 05/03/18 11:20 History Source: Patient Exam Limitations: No Limitations - History of Present Illness Initial Comments: 05/03/18 12:00 72y F s/p R total knee presents with wound dehicense. pt had home PT today and was fine, she was walking in her house with a cane on one hand and her hand on the chaur back and the chair back tipped over sending her falling. she denies any head injury, neck pain, back pain, loc, cp, sob, palitations, n/v, abd pain , back pain, knee pain. she has no pain. +wound decisions with bleeding over her R total knee ortho: dr. Jude Mota Past History - Past Medical History Allergies/Adverse Reactions: Allergies Allergy/AdvReac Type Severity Reaction Status Date / Time Penicillins Allergy Severe Swelling Verified 03/11/18 12:26 shellfish derived Allergy Severe Swelling Verified 03/11/18 12:26 Home Medications: Ambulatory Orders Clonidine HCl 0.1 mg PO DAILY 04/23/15 Multivitamins [Multivit ([facility] Formulary)] 1 tab PO DAILY 04/23/15 Cephalexin Monohydrate [Keflex -] 500 mg PO TID #30 capsule 04/02/18 Anemia: No Asthma: No Cancer: No Cardiac Disorders: No CVA: No COPD: No CHF: No Dementia: No Diabetes: No GI Disorders: No Disorders: No HTN: Yes Hypercholesterolemia: No Liver Disease: No Seizures: No Thyroid Disease: No - Surgical History Abdominal Surgery: No Appendectomy: No Cardiac Surgery: No Cholecystectomy: No Lung Surgery: No Neurologic Surgery: No Orthopedic Surgery: Yes (Bilateral Rotator Cuff Repair,3 SCREWS RT SHOULDER, Bilateral Bunionectomy) - Suicide/Smoking/Psychosocial Hx Smoking Status: No Smoking History: Never smoked Have you smoked in the past 12 months: No Number of Cigarettes Smoked Daily: 20 If you are a former smoker, when did you quit?: 2004 Information on smoking cessation initiated: No Hx Alcohol Use: No Drug/Substance Use Hx: No Substance Use Type: None Hx Substance Use Treatment: No Review of Systems - Review of Systems Able to Perform ROS?: Yes Comments:: 05/03/18 12:01 Constitutional - no reported Fever, Chills, HEENT: no reported vision changes, Respiratory: no reported cough, sob, hemoptysis Cardiac: no reported chest pain, palpitations, light headedness, leg swelling Abd/GI: no reported abd pain, nausea, vomiting, Musculskelatal - no reported back pain, joint swelling skin - +wound decisence no reported bruising, erythema, rash neurological: no reported headache, numbness, focal weakness, tingling, ataxia, hematologic: no reported easy bruising, easy bleeding *Physical Exam - Vital Signs Last Vital Signs Temp Pulse Resp BP Pulse Ox 98.6 F 97 H 20 157/78 97 05/03/18 10:44 05/03/18 10:44 05/03/18 10:44 05/03/18 10:44 05/03/18 10:44 - Physical Exam Comments: 05/03/18 12:02 GENERAL: The patient is awake, alert, and fully oriented, Nontoxic - in no acute distress. HEAD: Normocephalic, atraumatic. EXTREMITIES: 10cm open wound on anterior R knee, no erythema/induration, normal ROM of bl knee/hips ED Treatment Course - LABORATORY CBC & Chemistry Diagram: 05/03/18 14:10 05/03/18 14:10 Medical Decision Making - Medical Decision Making 05/03/18 12:[address] mota regarding plan for wound dehiciense 05/03/18 13:[address] ho requests xray and lab work NPO 05/03/18 15:[address] mota, requests admission as will need operative care case dw dr. webster agree with admissino for further management stable for med surg Case discussed in detail with admitting physician including history, physical exam and ancillary studies. Admitting physician has assumed care for the patient, will follow all pending diagnostics and will complete the evaluation and treatment. *DC/Admit/Observation/Transfer Diagnosis at time of Disposition: Wound dehiscence, surgical Qualifiers: Encounter type: initial encounter Qualified Code(s): T81.31XA - Disruption of external operation (surgical) wound, not elsewhere classified, initial encounter - Discharge Dispostion Condition at time of disposition: Guarded Decision to Admit order: Yes - Referrals - Patient Instructions - Post Discharge Activity
[2018-05-03 15:05] LABS: HEMATOCRIT 37.7 % (32.4-45.2); HEMOGLOBIN 12.5 GM/dl (10.7-15.3); MCH 30.7 pg (25.7-33.7); MCHC 33.2 g/dl (32.0-36.0); MEAN CELL VOLUME 92.5 fl (80-96); MEAN PLT VOLUME 6.8 fl (7.5-11.1); PLATELET COUNT 631 K/MM3 (134-434); RBC 4.07 M/mm3 (3.60-5.2); RDW 12.5 % (11.6-15.6)
[2018-05-03 15:06] LABS: INR 1.08 (0.82-1.09); PROTHROMBIN TIME (PATIENT) 12.1 SEC (10.2-13.0)
[2018-05-03 15:11] LABS: ALBUMIN 3.7 g/dl (3.5-5.0); ALK PHOS 106 U/L (32-92); ANION GAP 9 MMOL/L (8-16); BILIRUBIN,TOTAL 0.7 mg/dl (0.2-1.0); BLOOD UREA NITROGEN 9 mg/dl (7-18); CALCIUM 9.7 mg/dl (8.4-10.2); CHLORIDE 98 mmol/L (98-107); CO2 25 mmol/L (22-28); CREATININE 0.8 mg/dl (0.6-1.3); GLUCOSE,RANDOM 97 mg/dl (74-106); POTASSIUM 3.7 mmol/L (3.5-5.1); SGOT/AST 23 U/L (10-42); SGPT/ALT 15 U/L (10-40); SODIUM 132 mmol/L (136-145); TOT PROT 7.1 g/dl (6.4-8.3)
[2018-05-03] MEDS ORDERED: oxyCODONE HCL 5 MG TABLET PO PRN ×2 (15:30)
[2018-05-03] MEDS ORDERED: MAGNESIUM HYDROX 2400MG/30ML ORAL SUSPENSION 30 ML CUP PO PRN (15:31)
[2018-05-03] MEDS ORDERED: ONDANSETRON 4 MG/2 ML VIAL IVPUSH PRN (15:31)
[2018-05-03] MEDS ORDERED: MAG HYDROX/AL HYDROX/SIMETH 30 ML UNIT-DOSE CUP PO PRN (15:31)
--- NOTE | 2018-05-03 15:35 | CONSULT ---
Consult Consult Specialty:: Orthopedics - History of Present Illness Chief Complaint: R knee replacement wound dehiscence History of Present Illness: 72yo female s/p R TKA 04/01/18. Did well postop and was d/c'ed to SNF and recently returned home. States she has doing exercises with home physical therapist when she tripped and fell, hyperflexing the knee and causing wound dehiscence. Pt seen and examined in ER. Wound dressed. AVSS Selected Entries 05/03/18 10:44 Temperature 98.6 F Pulse Rate 97 H Respiratory 20 Rate Blood Pressure 157/78 Blood Pressure 104 Mean O2 Sat by Pulse 97 Oximetry (%) Weight 65.317 kg Laboratory Tests 05/03/18 05/03/18 05/03/18 14:10 14:10 14:10 WBC 8.0 Hgb 12.5 Hct 37.7 Plt Count 631 H PT with INR 12.1 INR 1.08 Sodium 132 L Potassium 3.7 Chloride 98 Carbon Dioxide 25 Anion Gap 9 BUN 9 Creatinine 0.8 Creat Clearance w eGFR > 60 Random Glucose 97 D Calcium 9.7 Total Bilirubin 0.7 AST 23 ALT 15 Alkaline Phosphatase 106 H Total Protein 7.1 Albumin 3.7 Gen: NAD RLE: wound dehiscence at distal 2/3 of incision down to tendon/capsule. Does not appear to be a capsular rupture though wound exam was limited by pain. Pt can weakly maintain a straight leg raise. She is NVID. XR of right knee reviewed - hardware in place, no fracture or dislocation. A/P 72yo female s/p R TKA 04/01/18 with wound dehiscence after fall NPO p [facility] for I&D, wound closure, possible capsulotomy and component exchange tomorrow Medical clearance. Bedrest. Keep RLE elevated. - Past Medical History Cardio/Vascular: Yes: HTN - Alcohol/Substance Use Hx Alcohol Use: No - Smoking History Smoking history: Never smoked Have you smoked in the past 12 months: No Aproximately how many cigarettes per day: 20 If you are a former smoker, when did you quit?: 2004 Home Medications - Allergies Allergies/Adverse Reactions: Allergies Allergy/AdvReac Type Severity Reaction Status Date / Time Penicillins Allergy Severe Swelling Verified 03/11/18 12:26 shellfish derived Allergy Severe Swelling Verified 03/11/18 12:26 - Home Medications Home Medications: Ambulatory Orders Clonidine HCl 0.1 mg PO DAILY 04/23/15 Multivitamins [Multivit ([facility] Formul[facility])] 1 tab PO DAILY 04/23/15 Cephalexin Monohydrate [Keflex -] 500 mg PO TID #30 capsule 04/02/18 Physical Exam Vital Signs: Vital Signs Temperature 98.6 F 05/03/18 10:44 Pulse Rate 97 H 05/03/18 10:44 Respiratory Rate 20 05/03/18 10:44 Blood Pressure 157/78 05/03/18 10:44 O2 Sat by Pulse Oximetry (%) 97 05/03/18 10:44 Labs: CBC, BMP 05/03/18 14:10 05/03/18 14:10
[2018-05-03] MEDS ORDERED: CEFAZOLIN 2 GM/D5W 2 GM/50 ML ML IVPB SCH (18:00)
--- NOTE | 2018-05-03 18:12 | HP ---
Admitting History and Physical - Primary Care Physician PCP: Bhumika Roberson - Admission Chief Complaint: fall/ knee injury History of Present Illness: 72y F s/p R total knee presents with wound dehicense. pt had home PT today and was fine, she was walking in her house with a cane on one hand and her hand on the chaur back and the chair back tipped over sending her falling. she denies any head injury, neck pain, back pain, loc, cp, sob, palitations, n/v, abd pain , back pain, knee pain. she has no pain. +wound decisions with bleeding over her R total knee. pt seen / examined . chart reviewed. for or tomorrow-- ortho consult noted/ appreciated got angel pt reports it was mechanical fall History Source: Patient Limitations to Obtaining History: No Limitations - Past Medical History Cardiovascular: Yes: HTN Psych: Yes: Anxiety - Smoking History Smoking history: Never smoked Have you smoked in the past 12 months: No Aproximately how many cigarettes per day: 20 If you are a former smoker, when did you quit?: 2004 - Alcohol/Substance Use Hx Alcohol Use: No Home Medications - Allergies Allergies/Adverse Reactions: Allergies Allergy/AdvReac Type Severity Reaction Status Date / Time Penicillins Allergy Severe Swelling Verified 05/03/18 17:51 shellfish derived Allergy Severe Swelling Verified 05/03/18 17:51 - Home Medications Home Medications: Ambulatory Orders Clonidine HCl 0.1 mg PO DAILY 04/23/15 Multivitamins [Multivit ([facility] Formulary)] 1 tab PO DAILY 04/23/15 Cephalexin Monohydrate [Keflex -] 500 mg PO TID #30 capsule 04/02/18 Review of Systems - Review of Systems Constitutional: reports: No Symptoms Eyes: reports: No Symptoms Neck: reports: No Symptoms Cardiovascular: reports: No Symptoms Respiratory: reports: No Symptoms Gastrointestinal: reports: No Symptoms Genitourinary: reports: No Symptoms Psychiatric: reports: Anxiety Physical Examination Vital Signs: Vital Signs Temperature 98.6 F 05/03/18 10:44 Pulse Rate 97 H 05/03/18 10:44 Respiratory Rate 20 05/03/18 10:44 Blood Pressure 157/78 05/03/18 10:44 O2 Sat by Pulse Oximetry (%) 97 05/03/18 10:44 Constitutional: Yes: No Distress, Anxious Eyes: Yes: Conjunctiva Clear Neck: Yes: Supple Cardiovascular: Yes: Regular Rate and Rhythm Respiratory: Yes: CTA Bilaterally Gastrointestinal: Yes: Normal Bowel Sounds, Soft Musculoskeletal: Yes: Other (right lower extremity in brace .) Edema: No Neurological: Yes: Alert Labs: CBC, BMP 05/03/18 14:10 05/03/18 14:10 Imaging - Results Chest X-ray: Pending, Report Reviewed X-ray: Report Reviewed EKG: Pending (previous ekg-- last visit- reviewed), Report Reviewed Problem List - Problems (1) Wound dehiscence, surgical Code(s): T81.31XA - DISRUPTION OF EXTERNAL OPERATION (SURGICAL) WOUND, NEC, INIT Qualifiers: Encounter type: initial encounter Qualified Code(s): T81.31XA - Disruption of external operation (surgical) wound, not elsewhere classified, initial encounter Assessment/Plan For or tomorrow Medically stable for same Abx vanco Discussed with Dr. 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 will follow discussed with nursing staff.
[2018-05-03 18:17] VITALS: BMI 27.3
--- NOTE | 2018-05-03 18:21 | CON.ID ---
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 History of Present Illness: 72y F s/p R total knee coming to the hospital with wound dehiscence Patient mentions that she was walking in the house with cane in one hand with holdig the chair which tripped and the patient fell down denies any LOC,dizziness or any other symptoms denies chest pain palpitation after the fall patient note that her knee was bleeding and the wound had dehisced wound has broken down to complete joint and the joint is exposed patient has lot of pain otherwise patient is doing well - History Source History Provided By: Patient Limitations to Obtaining History: No Limitations - Past Medical History Cardio/Vascular: Yes: HTN Psych: Yes: Anxiety - Alcohol/Substance Use Hx Alcohol Use: No - Smoking History Smoking history: Never smoked Have you smoked in the past 12 months: No Aproximately how many cigarettes per day: 20 If you are a former smoker, when did you quit?: 2004 Home Medications - Allergies Allergies/Adverse Reactions: Allergies Allergy/AdvReac Type Severity Reaction Status Date / Time Penicillins Allergy Severe Swelling Verified 05/03/18 17:51 shellfish derived Allergy Severe Swelling Verified 05/03/18 17:51 - Home Medications Home Medications: Ambulatory Orders Clonidine HCl 0.1 mg PO DAILY 04/23/15 Multivitamins [Multivit ([facility] Formulary)] 1 tab PO DAILY 04/23/15 Cephalexin Monohydrate [Keflex -] 500 mg PO TID #30 capsule 04/02/18 Review of Systems - Review of Systems Constitutional: reports: No Symptoms Eyes: reports: No Symptoms HENT: reports: No Symptoms Neck: reports: No Symptoms Cardiovascular: reports: No Symptoms Respiratory: reports: No Symptoms Gastrointestinal: reports: No Symptoms Genitourinary: reports: No Symptoms Musculoskeletal: reports: Joint Pain (rt knee) Integumentary: reports: No Symptoms, Erythema (surroundng the wound), Wound ( open) Neurological: reports: No Symptoms Endocrine: reports: No Symptoms Hematology/Lymphatic: reports: No Symptoms Psychiatric: reports: No Symptoms Physical Exam Vital Signs: Vital Signs Temperature 98.6 F 05/03/18 10:44 Pulse Rate 97 H 05/03/18 10:44 Respiratory Rate 20 05/03/18 10:44 Blood Pressure 157/78 05/03/18 10:44 O2 Sat by Pulse Oximetry (%) 97 05/03/18 10:44 Constitutional: Yes: Well Nourished, Calm, Mild Distress Eyes: Yes: Conjunctiva Clear HENT: Yes: Atraumatic, Normocephalic Neck: Yes: Supple, Trachea Midline Cardiovascular: Yes: Regular Rate and Rhythm Respiratory: Yes: Regular, CTA Bilaterally Gastrointestinal: Yes: Normal Bowel Sounds, Soft Musculoskeletal: Yes: WNL Extremities: Yes: Erythema (around rt knee joint), Other Integumentary: Yes: Erythema Wound/Incision: Yes: Other (patients wound is extending all across on the rt knee joint prosthetic joint exposed wound wiht complete break down) Neurological: Yes: Alert, Oriented Psychiatric: Yes: Alert, Oriented Labs: CBC, BMP 05/03/18 14:10 05/03/18 14:10 Assessment/Plan Problem List - Problems (1) Wound dehiscence, surgical Code(s): T81.31XA - DISRUPTION OF EXTERNAL OPERATION (SURGICAL) WOUND, NEC, INIT Qualifiers: Encounter type: initial encounter Qualified Code(s): T81.31XA - Disruption of external operation (surgical) wound, not elsewhere classified, initial encounter plan will start patient on vanco and meropenam please send cultures from intraop will see what are the or findings rest as per ortho and the primary team plan is patient being taken to operating room tomorrow
[2018-05-03] MEDS: VANCOMYCIN 1,250 MG in DEXTROSE 5%-WATER - 250 ML IVPB SCH (19:46)
[2018-05-03] MEDS: SENNOSIDES/DOCUSATE COMBO (SENNA PLUS) TABLET (UD) PO SCH (21:46)
[2018-05-03] MEDS ORDERED: VANCOMYCIN 1 GRAM (PRE-DOCKED) 1,000 MG/250 ML BAG IVPB SCH (22:00)
[2018-05-03] MEDS ORDERED: VANCOMYCIN 1 GRAM (PRE-DOCKED) 1,000 MG/250 ML BAG IVPB ONE (22:00)
[2018-05-04] MEDS: MEROPENEM 1 GM in DEXTROSE 5%-WATER 100 ML IVPB SCH ×4 (01:05→19:42)
[2018-05-04] MEDS: ACETAMINOPHEN 500 MG TABLET (FP) PO PRN (01:06)
--- NOTE | 2018-05-04 09:05 | PN ---
Progress Note, Physician - Current Medication List Current Medications: Active Medications Acetaminophen (Tylenol -) 1,000 mg PO Q6H PRN PRN Reason: FEVER Last Admin: 05/04/18 01:06 Dose: 1,000 mg Al Hydroxide/Mg Hydroxide (Mylanta Oral Suspension -) 30 ml PO Q4H PRN PRN Reason: DYSPEPSIA Clonidine (Catapres -) 0.1 mg PO DAILY [facility] Meropenem 1 gm/ Dextrose 100 mls @ 200 mls/hr IVPB Q8H-IV JAYY Last Admin: 05/04/18 01:05 Dose: 200 mls/hr Vancomycin HCl 1,250 mg/ (Dextrose) 250 mls @ 250 mls/2 hr IVPB Q24H JAYY; Protocol Last Admin: 05/03/18 19:46 Dose: 250 mls/2 hr Magnesium Hydroxide (Milk Of Magnesia -) 30 ml PO PRN PRN PRN Reason: CONSTIPATION Multivitamins/Minerals/Vitamin C (Tab-A-Vit -) 1 tab PO DAILY [facility] Ondansetron HCl (Zofran Injection) 4 mg IVPUSH Q6H PRN PRN Reason: NAUSEA Oxycodone HCl (Roxicodone -) 5 mg PO Q4H PRN PRN Reason: PAIN LEVEL 1-5 Stop: 05/06/18 15:30 Oxycodone HCl (Roxicodone -) 10 mg PO Q4H PRN PRN Reason: PAIN LEVEL 6-10 Stop: 05/06/18 15:30 Pantoprazole Sodium (Protonix -) 40 mg PO DAILY [facility] Senna/Docusate Sodium (Pericolace -) 2 tablet PO HS [facility] Last Admin: 05/03/18 21:46 Dose: Not Given - Objective Vital Signs: Vital Signs Temperature 98.1 F 05/04/18 07:00 Pulse Rate 78 05/04/18 07:00 Respiratory Rate 20 05/04/18 07:00 Blood Pressure 124/61 05/04/18 07:00 O2 Sat by Pulse Oximetry (%) 97 05/04/18 06:41 Labs: CBC, BMP 05/03/18 14:10 05/03/18 14:10 INR, PTT INR 1.08 (0.82-1.09) 05/03/18 14:10
[2018-05-04] MEDS ORDERED: PT OWN MED DRAWER 7, Y5N ONE ×2 (09:59→19:46)
[2018-05-04] MEDS: PANTOPRAZOLE 40 MG TABLET (FP) PO SCH (10:00)
[2018-05-04] MEDS: cloNIDine HCL 0.1 MG TABLET PO SCH (10:05)
[2018-05-04] MEDS ORDERED: morphine CARPU-JECT 2 MG/1 ML DISP.SYRIN ONE (11:35)
[2018-05-04] MEDS: MULTIVITAMINS (DAILY MVI) TABLET (FP) PO SCH (11:54)
[2018-05-04] MEDS ORDERED: morphine CARPU-JECT 2 MG/1 ML DISP.SYRIN SQ ONE (12:20)
--- NOTE | 2018-05-04 13:15 | EKG ---
Test Reason : Blood Pressure : / mmHG Vent. Rate : 075 BPM Atrial Rate : 075 BPM P-R Int : 142 ms QRS Dur : 076 ms QT Int : 446 ms P-R-T Axes : 036 -27 031 degrees QTc Int : 498 ms NORMAL SINUS RHYTHM MINIMAL VOLTAGE CRITERIA FOR LVH, MAY BE NORMAL VARIANT CANNOT RULE OUT ANTERIOR INFARCT , AGE UNDETERMINED ABNORMAL ECG WHEN COMPARED WITH ECG OF 15-MAR-2018 09:51, ABERRANT CONDUCTION IS NO LONGER PRESENT Confirmed by MD FRANCISCO, ELENA ([id number]) on 05/04/2018 1:15:10 PM Referred By: DR GUTIÉRREZ Confirmed By:ELENA SINGH MD
[2018-05-04] MEDS ORDERED: VANCOMYCIN 1,000 MG VIAL (RESTRICTED TO ID ONLY) ONE (13:24)
[2018-05-04] MEDS ORDERED: PROPOFOL 20 ML ONE ×6 (14:56)
[2018-05-04] MEDS ORDERED: SUCCINYLCHOLINE CHLORIDE 200 MG/10 ML VIAL ONE (14:57)
[2018-05-04] MEDS ORDERED: MIDAZOLAM HCL 2 MG/2 ML SINGLE DOSE VIAL ONE (14:58)
[2018-05-04] MEDS ORDERED: LIDOCAINE HCL/PF 2% SDV 5ML VIAL ONE (15:16)
[2018-05-04] MEDS ORDERED: ceFAZolin SODIUM 1 GM VIAL ONE ×3 (16:09→16:14)
[2018-05-04] MEDS ORDERED: ROCURONIUM BROMIDE 50 MG/5 ML VIAL ONE (16:14)
[2018-05-04] MEDS ORDERED: DEXAMETHASONE SOD PHOSPHATE 4 MG/1 ML VIAL ONE (16:14)
[2018-05-04] MEDS ORDERED: ACETAMINOPHEN INJECTION 100 ML IVPB ONE (17:22)
[2018-05-04] MEDS ORDERED: VANCOMYCIN 1,000 MG VIAL (RESTRICTED TO ID ONLY) IVPB ONE (17:24)
[2018-05-04] MEDS ORDERED: LABETALOL HCL 5 MG/1 ML (100MG/20 ML VIAL) ONE (17:26)
--- NOTE | 2018-05-04 17:29 | PN ---
Progress Note (short form) - Note Progress Note: for or today. Vital Signs Temp 98.2 F 05/04/18 14:05 Pulse 71 05/04/18 14:05 Resp 16 05/04/18 14:05 BP 131/61 05/04/18 14:05 Pulse Ox 100 05/04/18 14:05 Intake & Output 05/03/18 05/04/18 05/04/18 23:59 11:59 23:59 Intake Total 200 0 Balance 200 0 Weight 164 lb 8 oz Intake: IV 0 Oral 200 Other: Voiding Method Bedside Commode Toilet # Unmeasured Voids Void 2 Bowel Movement No Height 5 ft 5 in Body Mass Index (BMI) 27.3 Weight Measurement Method Patient Lift Scale Active Medications Acetaminophen (Tylenol -) 1,000 mg PO Q6H PRN PRN Reason: FEVER Last Admin: 05/04/18 01:06 Dose: 1,000 mg Al Hydroxide/Mg Hydroxide (Mylanta Oral Suspension -) 30 ml PO Q4H PRN PRN Reason: DYSPEPSIA Clonidine (Catapres -) 0.1 mg PO DAILY [facility] Last Admin: 05/04/18 10:05 Dose: 0.1 mg Meropenem 1 gm/ Dextrose 100 mls @ 200 mls/hr IVPB Q8H-IV [facility] Last Admin: 05/04/18 10:06 Dose: 200 mls/hr Vancomycin HCl 1,250 mg/ (Dextrose) 250 mls @ 250 mls/2 hr IVPB Q24H [facility]; Protocol Last Admin: 05/03/18 19:46 Dose: 250 mls/2 hr Magnesium Hydroxide (Milk Of Magnesia -) 30 ml PO PRN PRN PRN Reason: CONSTIPATION Multivitamins/Minerals/Vitamin C (Tab-A-Vit -) 1 tab PO DAILY [facility] Last Admin: 05/04/18 11:54 Dose: Not Given Ondansetron HCl (Zofran Injection) 4 mg IVPUSH Q6H PRN PRN Reason: NAUSEA Oxycodone HCl (Roxicodone -) 5 mg PO Q4H PRN PRN Reason: PAIN LEVEL 1-5 Stop: 05/06/18 15:30 Oxycodone HCl (Roxicodone -) 10 mg PO Q4H PRN PRN Reason: PAIN LEVEL 6-10 Stop: 05/06/18 15:30 Pantoprazole Sodium (Protonix -) 40 mg PO DAILY [facility] Last Admin: 05/04/18 10:00 Dose: Not Given Senna/Docusate Sodium (Pericolace -) 2 tablet PO HS [facility] Last Admin: 05/03/18 21:46 Dose: Not Given CBC, BMP 05/03/18 14:10 05/03/18 14:10 Physical Examination Constitutional: Yes: No Distress, Eyes: Yes: Conjunctiva Clear Neck: Yes: Supple Cardiovascular: Yes: Regular Rate and Rhythm Respiratory: Yes: CTA Bilaterally Gastrointestinal: Yes: Normal Bowel Sounds, Soft Musculoskeletal: Yes: Other (right lower extremity in brace .) Edema: No Neurological: Yes: Alert Assessment/Plan For or today Medically stable for same Abx vanco will follow discussed with nursing staff. Problem List - Problems (1) Wound dehiscence, surgical Code(s): T81.31XA - DISRUPTION OF EXTERNAL OPERATION (SURGICAL) WOUND, NEC, INIT Qualifiers: Encounter type: initial encounter Qualified Code(s): T81.31XA - Disruption of external operation (surgical) wound, not elsewhere classified, initial encounter
[2018-05-04] MEDS ORDERED: ONDANSETRON 4 MG/2 ML VIAL IVPUSH PRN (18:21)
[2018-05-04] MEDS ORDERED: PROMETHAZINE HCL 25 MG/1 ML VIAL IVPB PRN (18:21)
[2018-05-04] MEDS ORDERED: LACTATED RINGERS SOLUTION 1,000 ML IV SCH (18:30)
[2018-05-04] MEDS ORDERED: PROMETHAZINE HCL 25 MG/1 ML VIAL ONE (18:35)
[2018-05-04] MEDS ORDERED: PROMETHAZINE HCL 25 MG/1 ML VIAL IVPUSH ONE (18:40)
--- NOTE | 2018-05-04 19:16 | OP ---
Operative Note - Note: Operative Date: 05/04/18 Pre-Operative Diagnosis: right TKA wound dehiscence Operation: I&D right knee and poly exchange Post-Operative Diagnosis: Same as Pre-op Surgeon: Jude Dong Anesthesia: General Estimated Blood Loss (mls): 50
[2018-05-04] MEDS ORDERED: traMADol HCL 50 MG TABLET PO ONE (19:17)
--- NOTE | 2018-05-04 19:28 | PN ---
Progress Note, Physician History of Present Illness: c/o of pain awaiting to go to the operating room - Current Medication List Current Medications: Active Medications Acetaminophen (Tylenol -) 1,000 mg PO Q6H PRN PRN Reason: FEVER Last Admin: 05/04/18 01:06 Dose: 1,000 mg Al Hydroxide/Mg Hydroxide (Mylanta Oral Suspension -) 30 ml PO Q4H PRN PRN Reason: DYSPEPSIA Apixaban (Eliquis -) 2.5 mg PO BID [facility] Ascorbic Acid (Vitamin C -) 500 mg PO BID [facility] Clonidine (Catapres -) 0.1 mg PO DAILY [facility] Last Admin: 05/04/18 10:05 Dose: 0.1 mg Fentanyl (Sublimaze Injection -) 50 mcg IVPUSH [id number] PRN PRN Reason: PAIN-PACU ORDER X 4 DOSES ONLY Meropenem 1 gm/ Dextrose 100 mls @ 200 mls/hr IVPB Q8H-IV [facility] Last Admin: 05/04/18 10:06 Dose: 200 mls/hr Vancomycin HCl 1,250 mg/ (Dextrose) 250 mls @ 250 mls/2 hr IVPB Q24H [facility]; Protocol Last Admin: 05/03/18 19:46 Dose: 250 mls/2 hr Lactated Ringer's (Lactated Ringers Solution) 1,000 mls @ 125 mls/hr IV ASDIR [facility] Magnesium Hydroxide (Milk Of Magnesia -) 30 ml PO PRN PRN PRN Reason: CONSTIPATION Multivitamins/Minerals/Vitamin C (Tab-A-Vit -) 1 tab PO DAILY [facility] Last Admin: 05/04/18 11:54 Dose: Not Given Ondansetron HCl (Zofran Injection) 4 mg IVPUSH Q6H PRN PRN Reason: NAUSEA Ondansetron HCl (Zofran Injection) 4 mg IVPUSH Q6H PRN PRN Reason: NAUSEA AND/OR VOMITING Oxycodone HCl (Roxicodone -) 5 mg PO Q4H PRN PRN Reason: PAIN LEVEL 1-5 Stop: 05/06/18 15:30 Oxycodone HCl (Roxicodone -) 10 mg PO Q4H PRN PRN Reason: PAIN LEVEL 6-10 Stop: 05/06/18 15:30 Pantoprazole Sodium (Protonix -) 40 mg PO DAILY [facility] Last Admin: 05/04/18 10:00 Dose: Not Given Promethazine HCl (Phenergan Injection -) 12.5 mg IVPB Q6H PRN PRN Reason: NAUSEA-FOR RESCUE AFTER 15 MIN Senna/Docusate Sodium (Pericolace -) 2 tablet PO HS [facility] Last Admin: 05/03/18 21:46 Dose: Not Given Tramadol HCl (Ultram -) 50 mg PO Q6H [facility] - Objective Vital Signs: Vital Signs Temperature 98.1 F 05/04/18 18:25 Pulse Rate 71 05/04/18 18:25 Respiratory Rate 12 05/04/18 18:25 Blood Pressure 146/80 05/04/18 18:25 O2 Sat by Pulse Oximetry (%) 100 05/04/18 18:25 Constitutional: Yes: Calm, Mild Distress Eyes: Yes: Conjunctiva Clear HENT: Yes: Atraumatic Cardiovascular: Yes: Regular Rate and Rhythm Respiratory: Yes: Regular, CTA Bilaterally Gastrointestinal: Yes: Normal Bowel Sounds, Soft Musculoskeletal: Yes: Other Extremities: Yes: Other Wound/Incision: Yes: Dressing Dry and Intact Neurological: Yes: Alert, Oriented Labs: CBC, BMP 05/03/18 14:10 05/03/18 14:10 INR, PTT INR 1.08 (0.82-1.09) 05/03/18 14:10 Assessment/Plan Problem List - Problems (1) Wound dehiscence, surgical Code(s): T81.31XA - DISRUPTION OF EXTERNAL OPERATION (SURGICAL) WOUND, NEC, INIT Qualifiers: Encounter type: initial encounter Qualified Code(s): T81.31XA - Disruption of external operation (surgical) wound, not elsewhere classified, initial encounter plan will start patient on vanco and meropenam send cultures from intraop will see what are the or findings rest as per ortho and the primary team plan is patient being taken to operating room today
[2018-05-04] MEDS: VANCOMYCIN 1,250 MG in DEXTROSE 5%-WATER - 250 ML IVPB SCH ×3 (19:30→20:03)
[2018-05-04] MEDS: traMADol HCL 50 MG TABLET PO SCH (19:50)
[2018-05-04] MEDS: ASCORBIC ACID 500 MG TABLET (FP) PO SCH (21:13)
[2018-05-04] MEDS: SENNOSIDES/DOCUSATE COMBO (SENNA PLUS) TABLET (UD) PO SCH (21:13)
--- NOTE | 2018-05-04 23:23 | OP ---
DATE OF OPERATION: 05/04/2018 PREOPERATIVE DIAGNOSIS: Right total knee replacement wound dehiscence. POSTOPERATIVE DIAGNOSIS: Right total knee replacement wound dehiscence. PROCEDURE: Irrigation and debridement of right total knee replacement with polyethylene exchange and primary wound closure. ATTENDING: Renetta Lou MD BANKING OFFICER: None. ANESTHESIA: General. ESTIMATED BLOOD LOSS: 50 mL. COMPLICATIONS: None. IMPLANTS USED: A 16-mm total stabilized polyethylene component. DISPOSITION: The patient was transferred to the PACU in stable condition. INDICATIONS: This is a 72-year-old female who underwent a right total knee replacement on April 01, 2018, and did well postoperatively. She was discharged to a rehab facility and was able to complete rehab without any issues. She was subsequently discharged home. While at home with the home physical therapist, doing exercises, she was leaning on a chair, which fell causing her to fall forward onto her knee, resulting in wound dehiscence. The patient was seen and examined by Dr. Lou in the [facility] Emergency Room and indicated for irrigation and debridement and primary wound closure in the operating room. The risks, benefits, and alternatives of the procedure were explained to the patient in great detail and she elected to have the procedure performed. DESCRIPTION OF PROCEDURE: On the day of surgery, the patient was taken to the operating room and placed on the OR table. General anesthesia was administered by the anesthesiologist. The patient was then positioned supine on the table and all bony prominences were padded. A tourniquet was placed on the proximal thigh. The right lower extremity was then prepped and draped with betadine prep. A surgical timeout was then performed with the team to verify the patient's identity, procedure, side, availability of implants, and the administration of antibiotics. The leg was then elevated and the tourniquet was inflated. With the knee flexed, the previous incision scar was opened from the area of wound dehiscence, which encompassed the lower two-thirds of the scar up proximally to the top most one-third, which had healed. Dissection was carried down through the subcutaneous fat to the underlying retinaculum. The joint capsule was examined and appeared to be at first intact. A 60-mL syringe was loaded with sterile saline and using an 18-gauge needle the joint capsule was injected with this fluid at a site far proximal to the area of dehiscence. Saline was seen leaking out through various small disruptions in the capsule in several places and therefore we elected to do a capsulotomy and full incision and drainage with polyethylene exchange. A medial parapatellar arthrotomy was then performed utilizing the previous arthrotomy suture line. All cut sutures were removed. This was followed by subperiosteal dissection of tissue off the proximal medial tibia. The knee was then flexed to 90 degrees and the polyethylene insert was removed to allow irrigation and debridement of the posterior capsule as well as the surface of the tibial tray. Three liters of normal saline containing 1 g of Ancef per liter of saline was used to irrigate the knee via pulsatile lavage. Once this was completed, a 3-minute dilute betadine lavage was performed and the knee was again irrigated with saline. Rl retractors were then placed around the tibial tray and a new polyethylene component was inserted. We elected to upsize the polyethylene to a 16-mm component to allow for greater soft tissue tension. Once this was completed, the wound was again thoroughly irrigated with normal saline. A second 3-minute dilute betadine soak was performed and again a pulsatile lavage device was used to irrigate the knee with 3 L of normal saline containing 1 g of Ancef per liter of saline. Number 2 FiberWire and number 0 V-Loc 180 barbed sutures were used to close the arthrotomy. Number 1 Vicryl sutures were used for the deep subcutaneous tissues. Then 2-0 V-Loc 90 running barbed suture was used for the superficial subcutaneous tissues. The skin was closed using both 3-0 V-Loc 90 suture in a running subcuticular fashion and Dermabond skin adhesive. Once this was completed, a sterile Aquacel dressing was applied. The knee was then wrapped with Webril and a compressive Vincenzo wrap. The tourniquet was then deflated and a knee immobilizer was placed on the right lower extremity. The patient was then awakened and taken to the PACU in stable condition. RENETTA LOU M.D. KAMILA/[id number]
[2018-05-05] MEDS: traMADol HCL 50 MG TABLET PO SCH ×4 (00:04→22:06)
[2018-05-05] MEDS ORDERED: PT OWN MED DRAWER 7, Y5N ONE ×3 (00:06→18:43)
[2018-05-05] MEDS: MEROPENEM 1 GM in DEXTROSE 5%-WATER 100 ML IVPB SCH ×3 (02:58→18:41)
[2018-05-05 08:04] LABS: HEMATOCRIT 32.3 % (32.4-45.2); HEMOGLOBIN 10.8 GM/dl (10.7-15.3); MCH 30.8 pg (25.7-33.7); MCHC 33.5 g/dl (32.0-36.0); MEAN CELL VOLUME 91.9 fl (80-96); MEAN PLT VOLUME 6.4 fl (7.5-11.1); PLATELET COUNT 530 K/MM3 (134-434); RBC 3.51 M/mm3 (3.60-5.2); RDW 12.3 % (11.6-15.6); WHITE BLOOD COUNT 8.2 K/mm3 (4.0-10.8)
[2018-05-05 08:29] LABS: ANION GAP 8 MMOL/L (8-16); BLOOD UREA NITROGEN 8 mg/dl (7-18); CALCIUM 8.8 mg/dl (8.4-10.2); CHLORIDE 99 mmol/L (98-107); CO2 25 mmol/L (22-28); GLUCOSE,RANDOM 100 mg/dl (74-106); POTASSIUM 4.4 mmol/L (3.5-5.1); SODIUM 132 mmol/L (136-145)
--- NOTE | 2018-05-05 09:48 | PN ---
Progress Note (short form) - Note Progress Note: 72F POD1 s/p I and D R knee with poly exchange under general anesthetic anesthetic. Pt states pain is moderately well controlled and reports no anesthetic complications. AVSS. Continue current regimen.
[2018-05-05] MEDS: PANTOPRAZOLE 40 MG TABLET (FP) PO SCH (10:00)
[2018-05-05] MEDS: cloNIDine HCL 0.1 MG TABLET PO SCH (10:07)
[2018-05-05] MEDS: ASCORBIC ACID 500 MG TABLET (FP) PO SCH ×2 (10:07→22:06)
[2018-05-05] MEDS: APIXABAN 2.5 MG TABLET PO SCH ×2 (10:08→22:06)
[2018-05-05] MEDS: MULTIVITAMINS (DAILY MVI) TABLET (FP) PO SCH (10:08)
--- NOTE | 2018-05-05 15:33 | PN ---
Progress Note, Physician History of Present Illness: doing well no complaints cx now looks pending - Current Medication List Current Medications: Active Medications Acetaminophen (Tylenol -) 1,000 mg PO Q6H PRN PRN Reason: FEVER Last Admin: 05/04/18 01:06 Dose: 1,000 mg Al Hydroxide/Mg Hydroxide (Mylanta Oral Suspension -) 30 ml PO Q4H PRN PRN Reason: DYSPEPSIA Apixaban (Eliquis -) 2.5 mg PO BID [facility] Last Admin: 05/05/18 10:08 Dose: 2.5 mg Ascorbic Acid (Vitamin C -) 500 mg PO BID [facility] Last Admin: 05/05/18 10:07 Dose: 500 mg Clonidine (Catapres -) 0.1 mg PO DAILY [facility] Last Admin: 05/05/18 10:07 Dose: 0.1 mg Fentanyl (Sublimaze Injection -) 50 mcg IVPUSH [id number] PRN PRN Reason: PAIN-PACU ORDER X 4 DOSES ONLY Meropenem 1 gm/ Dextrose 100 mls @ 200 mls/hr IVPB Q8H-IV [facility] Last Admin: 05/05/18 10:08 Dose: 200 mls/hr Vancomycin HCl 1,250 mg/ (Dextrose) 250 mls @ 250 mls/2 hr IVPB Q24H [facility]; Protocol Last Admin: 05/04/18 20:03 Dose: 250 mls/2 hr Lactated Ringer's (Lactated Ringers Solution) 1,000 mls @ 125 mls/hr IV ASDIR [facility] Last Admin: 05/04/18 19:50 Dose: 125 mls/hr Magnesium Hydroxide (Milk Of Magnesia -) 30 ml PO PRN PRN PRN Reason: CONSTIPATION Last Admin: 05/05/18 10:09 Dose: 30 ml Multivitamins/Minerals/Vitamin C (Tab-A-Vit -) 1 tab PO DAILY [facility] Last Admin: 05/05/18 10:08 Dose: 1 tab Ondansetron HCl (Zofran Injection) 4 mg IVPUSH Q6H PRN PRN Reason: NAUSEA Ondansetron HCl (Zofran Injection) 4 mg IVPUSH Q6H PRN PRN Reason: NAUSEA AND/OR VOMITING Oxycodone HCl (Roxicodone -) 5 mg PO Q4H PRN PRN Reason: PAIN LEVEL 1-5 Stop: 10/18/18 15:30 Last Admin: 05/05/18 12:00 Dose: 5 mg Oxycodone HCl (Roxicodone -) 10 mg PO Q4H PRN PRN Reason: PAIN LEVEL 6-10 Stop: 05/06/18 15:30 Pantoprazole Sodium (Protonix -) 40 mg PO DAILY [facility] Last Admin: 05/05/18 10:00 Dose: 40 mg Promethazine HCl (Phenergan Injection -) 12.5 mg IVPB Q6H PRN PRN Reason: NAUSEA-FOR RESCUE AFTER 15 MIN Senna/Docusate Sodium (Pericolace -) 2 tablet PO HS [facility] Last Admin: 05/04/18 21:13 Dose: Not Given Tramadol HCl (Ultram -) 50 mg PO Q6H [facility] Last Admin: 05/05/18 07:07 Dose: 50 mg - Objective Vital Signs: Vital Signs Temperature 98.2 F 05/05/18 13:00 Pulse Rate 65 05/05/18 13:00 Respiratory Rate 18 05/05/18 13:00 Blood Pressure 100/52 L 05/05/18 13:00 O2 Sat by Pulse Oximetry (%) 100 05/05/18 05:55 Constitutional: Yes: No Distress, Calm Cardiovascular: Yes: Regular Rate and Rhythm Respiratory: Yes: Regular, CTA Bilaterally Gastrointestinal: Yes: Normal Bowel Sounds, Soft Musculoskeletal: Yes: WNL Extremities: Yes: Other Wound/Incision: Yes: Dressing Dry and Intact Neurological: Yes: Alert, Oriented Labs: CBC, BMP 05/05/18 07:30 05/05/18 07:30 INR, PTT INR 1.08 (0.82-1.09) 05/03/18 14:10 Assessment/Plan Problem List - Problems (1) Wound dehiscence, surgical Code(s): T81.31XA - DISRUPTION OF EXTERNAL OPERATION (SURGICAL) WOUND, NEC, INIT Qualifiers: Encounter type: initial encounter Qualified Code(s): T81.31XA - Disruption of external operation (surgical) wound, not elsewhere classified, initial encounter plan continue abx await for cx report rest as per the team patient stable
[2018-05-05] MEDS: VANCOMYCIN 1,250 MG in DEXTROSE 5%-WATER - 250 ML IVPB SCH (18:41)
[2018-05-05] MEDS: ACETAMINOPHEN 500 MG TABLET (FP) PO PRN (20:13)
--- NOTE | 2018-05-05 20:38 | PN ---
Progress Note (short form) - Note Progress Note: pod # 1 Comfortable denies pain afebrile all f/u noted Vital Signs Temp 98.2 F 05/05/18 13:00 Pulse 65 05/05/18 13:00 Resp 18 05/05/18 13:00 BP 100/52 L 05/05/18 13:00 Pulse Ox 100 05/05/18 05:55 Intake & Output 05/04/18 05/05/18 05/05/18 23:59 11:59 23:59 Intake Total 1300 450 350 Output Total 0 Balance 1300 450 350 Intake: IV 1300 Oral 450 350 Output: Urine 0 Other: Voiding Method Toilet Bedside Commode # Unmeasured Voids Void 1 1 Active Medications Acetaminophen (Tylenol -) 1,000 mg PO Q6H PRN PRN Reason: FEVER Last Admin: 05/05/18 20:13 Dose: 1,000 mg Al Hydroxide/Mg Hydroxide (Mylanta Oral Suspension -) 30 ml PO Q4H PRN PRN Reason: DYSPEPSIA Apixaban (Eliquis -) 2.5 mg PO BID [facility] Last Admin: 05/05/18 10:08 Dose: 2.5 mg Ascorbic Acid (Vitamin C -) 500 mg PO BID [facility] Last Admin: 05/05/18 10:07 Dose: 500 mg Clonidine (Catapres -) 0.1 mg PO DAILY [facility] Last Admin: 05/05/18 10:07 Dose: 0.1 mg Fentanyl (Sublimaze Injection -) 50 mcg IVPUSH [id number] PRN PRN Reason: PAIN-PACU ORDER X 4 DOSES ONLY Meropenem 1 gm/ Dextrose 100 mls @ 200 mls/hr IVPB Q8H-IV [facility] Last Admin: 05/05/18 18:41 Dose: 200 mls/hr Vancomycin HCl 1,250 mg/ (Dextrose) 250 mls @ 250 mls/2 hr IVPB Q24H [facility]; Protocol Last Admin: 05/05/18 18:41 Dose: 250 mls/2 hr Lactated Ringer's (Lactated Ringers Solution) 1,000 mls @ 125 mls/hr IV ASDIR [facility] Last Admin: 05/04/18 19:50 Dose: 125 mls/hr Magnesium Hydroxide (Milk Of Magnesia -) 30 ml PO PRN PRN PRN Reason: CONSTIPATION Last Admin: 05/05/18 10:09 Dose: 30 ml Multivitamins/Minerals/Vitamin C (Tab-A-Vit -) 1 tab PO DAILY [facility] Last Admin: 05/05/18 10:08 Dose: 1 tab Ondansetron HCl (Zofran Injection) 4 mg IVPUSH Q6H PRN PRN Reason: NAUSEA Ondansetron HCl (Zofran Injection) 4 mg IVPUSH Q6H PRN PRN Reason: NAUSEA AND/OR VOMITING Oxycodone HCl (Roxicodone -) 5 mg PO Q4H PRN PRN Reason: PAIN LEVEL 1-5 Stop: 05/06/18 15:30 Last Admin: 05/05/18 12:00 Dose: 5 mg Oxycodone HCl (Roxicodone -) 10 mg PO Q4H PRN PRN Reason: PAIN LEVEL 6-10 Stop: 05/06/18 15:30 Pantoprazole Sodium (Protonix -) 40 mg PO DAILY [facility] Last Admin: 05/05/18 10:00 Dose: 40 mg Promethazine HCl (Phenergan Injection -) 12.5 mg IVPB Q6H PRN PRN Reason: NAUSEA-FOR RESCUE AFTER 15 MIN Senna/Docusate Sodium (Pericolace -) 2 tablet PO HS [facility] Last Admin: 05/04/18 21:13 Dose: Not Given Tramadol HCl (Ultram -) 50 mg PO Q6H [facility] Last Admin: 05/05/18 18:40 Dose: Not Given CBC, BMP 05/05/18 07:30 05/05/18 07:30 Physical Examination Constitutional: Yes: No Distress, Eyes: Yes: Conjunctiva Clear Neck: Yes: Supple Cardiovascular: Yes: Regular Rate and Rhythm Respiratory: Yes: CTA Bilaterally Gastrointestinal: Yes: Normal Bowel Sounds, Soft Musculoskeletal: Yes: Other (right lower extremity in brace .) Edema: No Neurological: Yes: Alert Assessment/Plan pod # 1 comfortable Abx per i/d cultures pending. discussed with nursing staff. discussed with Dr. Oconnor also today Physical therapy incentive spirometry will follow Problem List - Problems (1) Wound dehiscence, surgical Code(s): T81.31XA - DISRUPTION OF EXTERNAL OPERATION (SURGICAL) WOUND, NEC, INIT Qualifiers: Encounter type: initial encounter Qualified Code(s): T81.31XA - Disruption of external operation (surgical) wound, not elsewhere classified, initial encounter
[2018-05-05] MEDS: SENNOSIDES/DOCUSATE COMBO (SENNA PLUS) TABLET (UD) PO SCH (22:06)
[2018-05-06] MEDS ORDERED: PT OWN MED DRAWER 7, Y5N ONE ×4 (01:30→20:29)
[2018-05-06] MEDS: MEROPENEM 1 GM in DEXTROSE 5%-WATER 100 ML IVPB SCH ×3 (01:37→17:20)
[2018-05-06] MEDS: traMADol HCL 50 MG TABLET PO SCH ×4 (06:31→21:24)
--- NOTE | 2018-05-06 08:16 | PN ---
Progress Note (short form) - Note Progress Note: Pt seen and examined. Doing well. AVSS Selected Entries 05/06/18 05:00 Temperature 97.6 F Pulse Rate 69 Respiratory 18 Rate Blood Pressure 107/56 L O2 Sat by Pulse 97 Oximetry (%) Oxygen Delivery Room Air Method Laboratory Tests 05/05/18 05/05/18 07:30 07:30 WBC 8.2 Hgb 10.8 Hct 32.3 L Plt Count 530 H Sodium 132 L Potassium 4.4 Chloride 99 Carbon Dioxide 25 Anion Gap 8 BUN 8 Creatinine 1.0 Creat Clearance w eGFR 54.35 Random Glucose 100 Calcium 8.8 Gen: NAD RLE: c/d/i, NVID A/P s/p R TKA wound dehiscence I&D and poly exchange 1. PT/OOB - WBAT RLE with brace on 2. Keep brace on for 2 weeks without bending knee to allow skin to heal without tension 3. Eliquis 2.5mg PO BID x 35 days for DVT ppx 4. D/C home vs. SNF when medically stable - ok to d/c from orthopedic perspective 5. Please d/c home with PO abx. Cx pending 6. F/U in office in 14 days. Do not remove Aquacel dressing before that - will be removed in office by me.
[2018-05-06 08:17] LABS: HEMATOCRIT 33.2 % (32.4-45.2); HEMOGLOBIN 11.5 GM/dl (10.7-15.3); MCH 32.3 pg (25.7-33.7); MCHC 34.7 g/dl (32.0-36.0); MEAN CELL VOLUME 93.1 fl (80-96); MEAN PLT VOLUME 6.6 fl (7.5-11.1); PLATELET COUNT 462 K/MM3 (134-434); RBC 3.57 M/mm3 (3.60-5.2); RDW 12.2 % (11.6-15.6)
[2018-05-06] MEDS: cloNIDine HCL 0.1 MG TABLET PO SCH (10:43)
[2018-05-06] MEDS: PANTOPRAZOLE 40 MG TABLET (FP) PO SCH (10:44)
[2018-05-06] MEDS: MULTIVITAMINS (DAILY MVI) TABLET (FP) PO SCH (10:44)
[2018-05-06] MEDS: APIXABAN 2.5 MG TABLET PO SCH ×2 (10:44→21:23)
[2018-05-06] MEDS: ASCORBIC ACID 500 MG TABLET (FP) PO SCH ×2 (10:45→21:24)
--- NOTE | 2018-05-06 16:41 | PN ---
Progress Note (short form) - Note Progress Note: pod # 2 comfortable afebrile feels ok pain ok walked a little with help slightly elevated wbcs. cultures pending from knee . Vital Signs Temp 97.8 F 05/06/18 14:45 Pulse 74 05/06/18 14:45 Resp 18 05/06/18 14:45 BP 100/57 L 05/06/18 14:45 Pulse Ox 97 05/06/18 14:45 Intake & Output 05/05/18 05/06/18 05/06/18 23:59 11:59 23:59 Intake Total 350 Balance 350 Intake: Oral 350 Other: Voiding Method Bedside Commode Bedside Commode Active Medications Acetaminophen (Tylenol -) 1,000 mg PO Q6H PRN PRN Reason: FEVER Last Admin: 05/05/18 20:13 Dose: 1,000 mg Al Hydroxide/Mg Hydroxide (Mylanta Oral Suspension -) 30 ml PO Q4H PRN PRN Reason: DYSPEPSIA Apixaban (Eliquis -) 2.5 mg PO BID [facility] Last Admin: 05/06/18 10:44 Dose: 2.5 mg Ascorbic Acid (Vitamin C -) 500 mg PO BID [facility] Last Admin: 05/06/18 10:45 Dose: 500 mg Clonidine (Catapres -) 0.1 mg PO DAILY [facility] Last Admin: 05/06/18 10:43 Dose: 0.1 mg Meropenem 1 gm/ Dextrose 100 mls @ 200 mls/hr IVPB Q8H-IV [facility] Last Admin: 05/06/18 10:52 Dose: 200 mls/hr Vancomycin HCl 1,250 mg/ (Dextrose) 250 mls @ 250 mls/2 hr IVPB Q24H [facility]; Protocol Last Admin: 05/05/18 18:41 Dose: 250 mls/2 hr Lactated Ringer's (Lactated Ringers Solution) 1,000 mls @ 125 mls/hr IV ASDIR [facility] Last Admin: 05/04/18 19:50 Dose: 125 mls/hr Magnesium Hydroxide (Milk Of Magnesia -) 30 ml PO PRN PRN PRN Reason: CONSTIPATION Last Admin: 05/05/18 10:09 Dose: 30 ml Multivitamins/Minerals/Vitamin C (Tab-A-Vit -) 1 tab PO DAILY [facility] Last Admin: 05/06/18 10:44 Dose: 1 tab Ondansetron HCl (Zofran Injection) 4 mg IVPUSH Q6H PRN PRN Reason: NAUSEA Pantoprazole Sodium (Protonix -) 40 mg PO DAILY [facility] Last Admin: 05/06/18 10:44 Dose: 40 mg Senna/Docusate Sodium (Pericolace -) 2 tablet PO HS [facility] Last Admin: 05/05/18 22:06 Dose: 2 tablet Tramadol HCl (Ultram -) 50 mg PO Q6H [facility] Last Admin: 05/06/18 14:24 Dose: Not Given CBC, BMP 05/06/18 08:00 05/05/18 07:30 Physical Examination Constitutional: Yes: No Distress, Eyes: Yes: Conjunctiva Clear Neck: Yes: Supple Cardiovascular: Yes: Regular Rate and Rhythm Respiratory: Yes: CTA Bilaterally Gastrointestinal: Yes: Normal Bowel Sounds, Soft Musculoskeletal: Yes: Other (right lower extremity in brace .) Edema: No Neurological: Yes: Alert Assessment/Plan pod # 2 comfortable Abx per i/d cultures pending. discussed with nursing staff. Physical therapy incentive spirometry f/u cbc tomorrow d/c fluids check vanco trough level will follow Problem List - Problems (1) Wound dehiscence, surgical Code(s): T81.31XA - DISRUPTION OF EXTERNAL OPERATION (SURGICAL) WOUND, NEC, INIT Qualifiers: Encounter type: initial encounter Qualified Code(s): T81.31XA - Disruption of external operation (surgical) wound, not elsewhere classified, initial encounter
[2018-05-06] MEDS: ACETAMINOPHEN 500 MG TABLET (FP) PO PRN ×2 (16:43→21:24)
[2018-05-06] MEDS: VANCOMYCIN 1,250 MG in DEXTROSE 5%-WATER - 250 ML IVPB SCH (18:08)
--- NOTE | 2018-05-06 18:21 | PN ---
Progress Note, Physician History of Present Illness: patient doing well no complaints except pain post op working with physio - Current Medication List Current Medications: Active Medications Acetaminophen (Tylenol -) 1,000 mg PO Q6H PRN PRN Reason: FEVER Last Admin: 05/06/18 16:43 Dose: 1,000 mg Al Hydroxide/Mg Hydroxide (Mylanta Oral Suspension -) 30 ml PO Q4H PRN PRN Reason: DYSPEPSIA Apixaban (Eliquis -) 2.5 mg PO BID [facility] Last Admin: 05/06/18 10:44 Dose: 2.5 mg Ascorbic Acid (Vitamin C -) 500 mg PO BID [facility] Last Admin: 05/06/18 10:45 Dose: 500 mg Clonidine (Catapres -) 0.1 mg PO DAILY [facility] Last Admin: 05/06/18 10:43 Dose: 0.1 mg Meropenem 1 gm/ Dextrose 100 mls @ 200 mls/hr IVPB Q8H-IV [facility] Last Admin: 05/06/18 17:20 Dose: 200 mls/hr Vancomycin HCl 1,250 mg/ (Dextrose) 250 mls @ 250 mls/2 hr IVPB Q24H [facility]; Protocol Last Admin: 05/06/18 18:08 Dose: 250 mls/2 hr Lactated Ringer's (Lactated Ringers Solution) 1,000 mls @ 125 mls/hr IV ASDIR [facility] Last Admin: 05/04/18 19:50 Dose: 125 mls/hr Magnesium Hydroxide (Milk Of Magnesia -) 30 ml PO PRN PRN PRN Reason: CONSTIPATION Last Admin: 05/05/18 10:09 Dose: 30 ml Multivitamins/Minerals/Vitamin C (Tab-A-Vit -) 1 tab PO DAILY [facility] Last Admin: 05/06/18 10:44 Dose: 1 tab Ondansetron HCl (Zofran Injection) 4 mg IVPUSH Q6H PRN PRN Reason: NAUSEA Pantoprazole Sodium (Protonix -) 40 mg PO DAILY [facility] Last Admin: 05/06/18 10:44 Dose: 40 mg Senna/Docusate Sodium (Pericolace -) 2 tablet PO HS [facility] Last Admin: 05/05/18 22:06 Dose: 2 tablet Tramadol HCl (Ultram -) 50 mg PO Q6H [facility] Last Admin: 05/06/18 14:24 Dose: Not Given - Objective Vital Signs: Vital Signs Temperature 97.8 F 05/06/18 14:45 Pulse Rate 74 05/06/18 14:45 Respiratory Rate 18 05/06/18 14:45 Blood Pressure 100/57 L 05/06/18 14:45 O2 Sat by Pulse Oximetry (%) 97 05/06/18 14:45 Constitutional: Yes: Calm, Mild Distress Cardiovascular: Yes: Regular Rate and Rhythm Respiratory: Yes: Regular, CTA Bilaterally Gastrointestinal: Yes: Normal Bowel Sounds, Soft Musculoskeletal: Yes: WNL Extremities: Yes: Other Wound/Incision: Yes: Dressing Dry and Intact Neurological: Yes: Alert, Oriented Psychiatric: Yes: Alert, Oriented Labs: CBC, BMP 05/06/18 08:00 05/05/18 07:30 INR, PTT INR 1.08 (0.82-1.09) 05/03/18 14:10 Assessment/Plan Problem List - Problems (1) Wound dehiscence, surgical Code(s): T81.31XA - DISRUPTION OF EXTERNAL OPERATION (SURGICAL) WOUND, NEC, INIT Qualifiers: Encounter type: initial encounter Qualified Code(s): T81.31XA - Disruption of external operation (surgical) wound, not elsewhere classified, initial encounter wound cx preliminary negative stilla waiting finalization plan continue current abx await for cx reports once we have the reports will decide further mgmt rest as per ortho physio
[2018-05-06] MEDS: SENNOSIDES/DOCUSATE COMBO (SENNA PLUS) TABLET (UD) PO SCH (21:23)
[2018-05-07] MEDS: traMADol HCL 50 MG TABLET PO SCH ×5 (00:57→18:11)
[2018-05-07] MEDS: MEROPENEM 1 GM in DEXTROSE 5%-WATER 100 ML IVPB SCH ×3 (01:55→18:02)
--- NOTE | 2018-05-07 09:27 | PN ---
Progress Note (short form) - Note Progress Note: pod # 3 comfortable afebrile feels ok pain ok no new issues Vital Signs Temp 98.3 F 05/06/18 23:00 Pulse 69 05/06/18 23:00 Resp 18 05/06/18 23:00 BP 103/48 L 05/06/18 23:00 Pulse Ox 97 05/06/18 23:00 Intake & Output 05/06/18 05/06/18 05/07/18 11:59 23:59 11:59 Intake Total 950 400 Balance 950 400 Intake: IV 500 Lactated Ringers Solution 500 1,000 ml @ 125 mls/hr IV ASDIR JAYY Rx#: [id number] IVPB 450 Oral 400 Other: Voiding Method Bedside Commode Bedside Commode Bedside Commode # Unmeasured Voids Void 2 Active Medications Acetaminophen (Tylenol -) 1,000 mg PO Q6H PRN PRN Reason: FEVER Last Admin: 05/05/18 20:13 Dose: 1,000 mg Al Hydroxide/Mg Hydroxide (Mylanta Oral Suspension -) 30 ml PO Q4H PRN PRN Reason: DYSPEPSIA Apixaban (Eliquis -) 2.5 mg PO BID [facility] Last Admin: 05/06/18 10:44 Dose: 2.5 mg Ascorbic Acid (Vitamin C -) 500 mg PO BID [facility] Last Admin: 05/06/18 10:45 Dose: 500 mg Clonidine (Catapres -) 0.1 mg PO DAILY [facility] Last Admin: 05/06/18 10:43 Dose: 0.1 mg Meropenem 1 gm/ Dextrose 100 mls @ 200 mls/hr IVPB Q8H-IV [facility] Last Admin: 05/06/18 10:52 Dose: 200 mls/hr Vancomycin HCl 1,250 mg/ (Dextrose) 250 mls @ 250 mls/2 hr IVPB Q24H [facility]; Protocol Last Admin: 05/05/18 18:41 Dose: 250 mls/2 hr Lactated Ringer's (Lactated Ringers Solution) 1,000 mls @ 125 mls/hr IV ASDIR [facility] Last Admin: 05/04/18 19:50 Dose: 125 mls/hr Magnesium Hydroxide (Milk Of Magnesia -) 30 ml PO PRN PRN PRN Reason: CONSTIPATION Last Admin: 05/05/18 10:09 Dose: 30 ml Multivitamins/Minerals/Vitamin C (Tab-A-Vit -) 1 tab PO DAILY [facility] Last Admin: 05/06/18 10:44 Dose: 1 tab Ondansetron HCl (Zofran Injection) 4 mg IVPUSH Q6H PRN PRN Reason: NAUSEA Pantoprazole Sodium (Protonix -) 40 mg PO DAILY [facility] Last Admin: 05/06/18 10:44 Dose: 40 mg Senna/Docusate Sodium (Pericolace -) 2 tablet PO HS [facility] Last Admin: 05/05/18 22:06 Dose: 2 tablet Tramadol HCl (Ultram -) 50 mg PO Q6H [facility] Last Admin: 05/06/18 14:24 Dose: Not Given CBC, BMP 05/06/18 08:00 05/05/18 07:30 Microbiology 05/04/18 13:50 Gram Stain - Final Knee - Right Wound Culture - Preliminary NO GROWTH OBTAINED AFTER 24 HOURS INCUBATION, REINCUBATED. 05/04/18 13:50 Gram Stain - Final Knee - Right Wound Culture - Preliminary NO GROWTH OBTAINED AFTER 24 HOURS INCUBATION, REINCUBATED. Todays Labs - Pending Physical Examination Constitutional: Yes: No Distress, comfortable Eyes: Yes: Conjunctiva Clear Neck: Yes: Supple. no jvd Cardiovascular: Yes: Regular Rate and Rhythm Respiratory: Yes: CTA Bilaterally Gastrointestinal: Yes: Normal Bowel Sounds, Soft Musculoskeletal: Yes: Other (right lower extremity in brace .) Edema: No Neurological: Yes: Alert Assessment/Plan pod # 3 comfortable Abx per i/d cultures pending. -ve so far discussed with nursing staff. Physical therapy incentive spirometry f/u labs discharge planning-- str when cleared by i/d will discuss will follow Problem List - Problems (1) Wound dehiscence, surgical Code(s): T81.31XA - DISRUPTION OF EXTERNAL OPERATION (SURGICAL) WOUND, NEC, INIT Qualifiers: Encounter type: initial encounter Qualified Code(s): T81.31XA - Disruption of external operation (surgical) wound, not elsewhere classified, initial encounter
[2018-05-07 09:58] LABS: BASO % 0.8 % (0-2.0); EOS % 5.9 % (0-4.5); HEMATOCRIT 33.4 % (32.4-45.2); HEMOGLOBIN 11.4 GM/dl (10.7-15.3); LYMPH % 11.6 % (8-40); MCH 31.7 pg (25.7-33.7); MEAN CELL VOLUME 93.4 fl (80-96); MEAN PLT VOLUME 6.9 fl (7.5-11.1); MONO % 7.2 % (3.8-10.2); NEUT % 74.5 % (42.8-82.8); PLATELET COUNT 526 K/MM3 (134-434); RBC 3.58 M/mm3 (3.60-5.2); RDW 12.3 % (11.6-15.6); WHITE BLOOD COUNT 10.4 K/mm3 (4.0-10.8)
--- NOTE | 2018-05-07 10:23 | PN ---
Progress Note, Physician History of Present Illness: patient doing well no complaints pod 3 working with physio wound cx negative so far still preliminary - Current Medication List Current Medications: Active Medications Acetaminophen (Tylenol -) 1,000 mg PO Q6H PRN PRN Reason: FEVER Last Admin: 05/06/18 21:24 Dose: 1,000 mg Al Hydroxide/Mg Hydroxide (Mylanta Oral Suspension -) 30 ml PO Q4H PRN PRN Reason: DYSPEPSIA Apixaban (Eliquis -) 2.5 mg PO BID [facility] Last Admin: 05/06/18 21:23 Dose: 2.5 mg Ascorbic Acid (Vitamin C -) 500 mg PO BID [facility] Last Admin: 05/06/18 21:24 Dose: 500 mg Clonidine (Catapres -) 0.1 mg PO DAILY [facility] Last Admin: 05/06/18 10:43 Dose: 0.1 mg Meropenem 1 gm/ Dextrose 100 mls @ 200 mls/hr IVPB Q8H-IV [facility] Last Admin: 05/07/18 01:55 Dose: 200 mls/hr Vancomycin HCl 1,250 mg/ (Dextrose) 250 mls @ 250 mls/2 hr IVPB Q24H [facility]; Protocol Last Admin: 05/06/18 18:08 Dose: 250 mls/2 hr Lactated Ringer's (Lactated Ringers Solution) 1,000 mls @ 125 mls/hr IV ASDIR [facility] Last Admin: 05/04/18 19:50 Dose: 125 mls/hr Magnesium Hydroxide (Milk Of Magnesia -) 30 ml PO PRN PRN PRN Reason: CONSTIPATION Last Admin: 05/05/18 10:09 Dose: 30 ml Multivitamins/Minerals/Vitamin C (Tab-A-Vit -) 1 tab PO DAILY [facility] Last Admin: 05/06/18 10:44 Dose: 1 tab Ondansetron HCl (Zofran Injection) 4 mg IVPUSH Q6H PRN PRN Reason: NAUSEA Pantoprazole Sodium (Protonix -) 40 mg PO DAILY [facility] Last Admin: 05/06/18 10:44 Dose: 40 mg Senna/Docusate Sodium (Pericolace -) 2 tablet PO HS [facility] Last Admin: 05/06/18 21:23 Dose: 2 tablet Tramadol HCl (Ultram -) 50 mg PO Q6H [facility] Last Admin: 05/07/18 06:07 Dose: Not Given - Objective Vital Signs: Vital Signs Temperature 98.3 F 05/06/18 23:00 Pulse Rate 69 05/06/18 23:00 Respiratory Rate 18 05/06/18 23:00 Blood Pressure 103/48 L 05/06/18 23:00 O2 Sat by Pulse Oximetry (%) 97 05/06/18 23:00 Constitutional: Yes: No Distress, Calm Cardiovascular: Yes: Regular Rate and Rhythm Respiratory: Yes: Regular, CTA Bilaterally Gastrointestinal: Yes: Normal Bowel Sounds, Soft Musculoskeletal: Yes: WNL Extremities: Yes: Other Wound/Incision: Yes: Dressing Dry and Intact Neurological: Yes: Alert, Oriented Psychiatric: Yes: Alert, Oriented Labs: CBC, BMP 05/07/18 08:25 05/05/18 07:30 INR, PTT INR 1.08 (0.82-1.09) 05/03/18 14:10 Assessment/Plan Problem List - Problems (1) Wound dehiscence, surgical Code(s): T81.31XA - DISRUPTION OF EXTERNAL OPERATION (SURGICAL) WOUND, NEC, INIT Qualifiers: Encounter type: initial encounter Qualified Code(s): T81.31XA - Disruption of external operation (surgical) wound, not elsewhere classified, initial encounter wound cx preliminary negative stilla waiting finalization plan if wound cx remain negative then patient can be discharged on doxy 100 mg po bid for 10 days wound care physio rest as per the team
[2018-05-07 10:59] LABS: ERYTHROCYTE SEDIMENTATION RATE 41 mm/hr (0-30)
[2018-05-07] MEDS: APIXABAN 2.5 MG TABLET PO SCH ×2 (11:22→23:00)
[2018-05-07] MEDS: PANTOPRAZOLE 40 MG TABLET (FP) PO SCH (11:22)
[2018-05-07] MEDS: MULTIVITAMINS (DAILY MVI) TABLET (FP) PO SCH (11:23)
[2018-05-07] MEDS: ASCORBIC ACID 500 MG TABLET (FP) PO SCH ×2 (11:23→23:00)
[2018-05-07] MEDS: cloNIDine HCL 0.1 MG TABLET PO SCH (11:24)
[2018-05-07] MEDS: ACETAMINOPHEN 500 MG TABLET (FP) PO PRN (13:47)
[2018-05-07] MEDS ORDERED: PT OWN MED DRAWER 7, Y5N ONE (17:49)
--- NOTE | 2018-05-07 22:54 | PN ---
Progress Note (short form) - Note Progress Note: Pt seen and examined. Doing well. AVSS Microbiology 05/04/18 13:50 Knee - Right Gram Stain - Final 05/04/18 13:50 Knee - Right Gram Stain - Final 05/04/18 13:50 Knee - Right Wound Culture - Preliminary NO GROWTH OBTAINED AFTER 24 HOURS INCUBATION, REINCUBATED. 05/04/18 13:50 Knee - Right Wound Culture - Preliminary NO GROWTH OBTAINED AFTER 24 HOURS INCUBATION, REINCUBATED. Selected Entries 05/07/18 22:09 Temperature 98.4 F Pulse Rate 78 Respiratory 18 Rate Blood Pressure 106/56 L O2 Sat by Pulse 98 Oximetry (%) Oxygen Delivery Room Air Method Laboratory Tests 05/07/18 08:25 WBC 10.4 Hgb 11.4 Hct 33.4 Plt Count 526 H Gen: NAD RLE: c/d/i, NVID A/P s/p R TKA wound dehiscence I&D and poly exchange 1. PT/OOB - WBAT RLE with brace on 2. Keep brace on for 2 weeks without bending knee to allow skin to heal without tension 3. Eliquis 2.5mg PO BID x 35 days for DVT ppx 4. D/C home vs. SNF when medically stable - ok to d/c from orthopedic perspective 5. D/C home with PO abx - doxycycline as per ID. Cx negative x 24hrs. 6. F/U in office in 14 days. Do not remove Aquacel dressing before that - will be removed in office by me.
[2018-05-07] MEDS: SENNOSIDES/DOCUSATE COMBO (SENNA PLUS) TABLET (UD) PO SCH (23:00)
[2018-05-07] MEDS: VANCOMYCIN 1,250 MG in DEXTROSE 5%-WATER - 250 ML IVPB SCH (23:01)
[2018-05-08] MEDS: traMADol HCL 50 MG TABLET PO SCH ×3 (01:00→12:39)
[2018-05-08] MEDS ORDERED: PT OWN MED DRAWER 7, Y5N ONE (03:04)
[2018-05-08] MEDS: MEROPENEM 1 GM in DEXTROSE 5%-WATER 100 ML IVPB SCH ×2 (03:05→09:48)
[2018-05-08] MEDS: ACETAMINOPHEN 500 MG TABLET (FP) PO PRN (07:04)
[2018-05-08] MEDS: APIXABAN 2.5 MG TABLET PO SCH (09:48)
[2018-05-08] MEDS: cloNIDine HCL 0.1 MG TABLET PO SCH (09:48)
[2018-05-08] MEDS: ASCORBIC ACID 500 MG TABLET (FP) PO SCH (09:48)
[2018-05-08] MEDS: MULTIVITAMINS (DAILY MVI) TABLET (FP) PO SCH (09:48)
[2018-05-08] MEDS: PANTOPRAZOLE 40 MG TABLET (FP) PO SCH (09:49)
--- NOTE | 2018-05-08 12:12 | DS ---
Physical Examination Vital Signs: Vital Signs Temperature 98.3 F 05/08/18 06:00 Pulse Rate 92 H 05/08/18 06:00 Respiratory Rate 19 05/08/18 08:35 Blood Pressure 124/65 05/08/18 06:00 O2 Sat by Pulse Oximetry (%) 96 05/08/18 08:48 Findings/Remarks: pod # 4 doing well pain ok walking with pt afebrile cultures -ve so far Constitutional: Yes: No Distress Eyes: Yes: Conjunctiva Clear Neck: Yes: Supple Cardiovascular: Yes: Regular Rate and Rhythm Respiratory: Yes: CTA Bilaterally Gastrointestinal: Yes: Soft Edema: No Neurological: Yes: Alert Labs: CBC, BMP 05/07/18 08:25 05/05/18 07:30 Discharge Summary Reason For Visit: WOUND DEHISENCES Current Active Problems Wound dehiscence, surgical (Acute) Hospital Course: s/p R TKA wound dehiscence I&D and poly exchange doing well cultures -ve d/c to str with oral doxy x 10 days stable for d/c meds reconcilled discussed with case repairer/ nursing staff/ i/d pt in agreement. Condition: Improved - Instructions Disposition: [facility] - Home Medications Comprehensive Discharge Medication List: Ambulatory Orders Clonidine HCl 0.1 mg PO DAILY 04/23/15 Multivitamins [Multivit ([facility])] 1 tab PO DAILY 04/23/15 Acetaminophen [Tylenol .Extra-Strength -] 500 mg PO Q6H PRN tablet 05/08/18 Apixaban [Eliquis -] 2.5 mg PO BID tablet 05/08/18 Ascorbic Acid [Vitamin C -] 500 mg PO DAILY #30 tablet 05/08/18 Doxycycline Hyclate 100 mg PO BID #20 tablet 05/08/18 Mag Hydrox/Al Hydrox/Simeth [Mylanta Oral Suspension -] 30 ml PO Q4H PRN cup Multivitamins [Multivit ([facility])] 1 tab PO DAILY tab 05/08/18 Pantoprazole Sodium [Protonix -] 40 mg PO DAILY tablet.ec 05/08/18 Sennosides/Docusate Sodium [Pericolace -] 2 tablet PO HS tablet 05/08/18 traMADol HCL [Ultram -] 50 mg PO Q6H #30 tablet MDD 4 05/08/18
[2018-05-08 13:10] VITALS: BP 120/68; PULSE 74; TEMP 98.6
--- NOTE | 2018-05-08 13:23 | PN ---
Progress Note, Physician History of Present Illness: doing well no complaints - Current Medication List Current Medications: Active Medications Acetaminophen (Tylenol -) 1,000 mg PO Q6H PRN PRN Reason: FEVER Last Admin: 05/08/18 07:04 Dose: 1,000 mg Al Hydroxide/Mg Hydroxide (Mylanta Oral Suspension -) 30 ml PO Q4H PRN PRN Reason: DYSPEPSIA Apixaban (Eliquis -) 2.5 mg PO BID [facility] Last Admin: 05/08/18 09:48 Dose: 2.5 mg Ascorbic Acid (Vitamin C -) 500 mg PO BID [facility] Last Admin: 05/08/18 09:48 Dose: 500 mg Clonidine (Catapres -) 0.1 mg PO DAILY [facility] Last Admin: 05/08/18 09:48 Dose: 0.1 mg Meropenem 1 gm/ Dextrose 100 mls @ 200 mls/hr IVPB Q8H-IV [facility] Last Admin: 05/08/18 09:48 Dose: 200 mls/hr Vancomycin HCl 1,250 mg/ (Dextrose) 250 mls @ 250 mls/2 hr IVPB Q24H [facility]; Protocol Last Admin: 05/07/18 23:01 Dose: 250 mls/2 hr Lactated Ringer's (Lactated Ringers Solution) 1,000 mls @ 125 mls/hr IV ASDIR [facility] Last Admin: 05/04/18 19:50 Dose: 125 mls/hr Magnesium Hydroxide (Milk Of Magnesia -) 30 ml PO PRN PRN PRN Reason: CONSTIPATION Last Admin: 05/05/18 10:09 Dose: 30 ml Multivitamins/Minerals/Vitamin C (Tab-A-Vit -) 1 tab PO DAILY [facility] Last Admin: 05/08/18 09:48 Dose: 1 tab Ondansetron HCl (Zofran Injection) 4 mg IVPUSH Q6H PRN PRN Reason: NAUSEA Pantoprazole Sodium (Protonix -) 40 mg PO DAILY [facility] Last Admin: 05/08/18 09:49 Dose: 40 mg Senna/Docusate Sodium (Pericolace -) 2 tablet PO HS [facility] Last Admin: 05/07/18 23:00 Dose: 2 tablet Tramadol HCl (Ultram -) 50 mg PO Q6H [facility] Last Admin: 05/08/18 12:39 Dose: 50 mg - Objective Vital Signs: Vital Signs Temperature 98.6 F 05/08/18 10:00 Pulse Rate 74 05/08/18 10:00 Respiratory Rate 18 05/08/18 10:00 Blood Pressure 120/68 05/08/18 10:00 O2 Sat by Pulse Oximetry (%) 96 05/08/18 08:48 Constitutional: Yes: No Distress, Calm Neck: Yes: Supple Cardiovascular: Yes: Regular Rate and Rhythm Respiratory: Yes: Regular, CTA Bilaterally Gastrointestinal: Yes: Normal Bowel Sounds, Soft Musculoskeletal: Yes: WNL Extremities: Yes: Other Wound/Incision: Yes: Dressing Dry and Intact Neurological: Yes: Alert, Oriented Psychiatric: Yes: Alert, Oriented Labs: CBC, BMP 05/07/18 08:25 05/05/18 07:30 INR, PTT INR 1.08 (0.82-1.09) 05/03/18 14:10 Assessment/Plan Problem List - Problems (1) Wound dehiscence, surgical Code(s): T81.31XA - DISRUPTION OF EXTERNAL OPERATION (SURGICAL) WOUND, NEC, INIT Qualifiers: Encounter type: initial encounter Qualified Code(s): T81.31XA - Disruption of external operation (surgical) wound, not elsewhere classified, initial encounter wound cx preliminary negative stilla waiting finalization plan wound cx results noted patient to be on doxy as planned rest as per the team physio
== END 2018-05-08 14:14 | DRG 908 ==
LOC: FER 10:43 → FM/S 15:05
PROVIDERS: ADMIT Internal Medicine; ATTEND Internal Medicine
PROC: 0SRT0JA Replacement of Right Knee Joint, Femoral Surface with Synthetic Substitute, Uncemented, Open Approach (ICD-10-PCS; 2018-05-04)
PROC: 0SPC0NZ Removal of Patellofemoral Synthetic Substitute from Right Knee Joint, Open Approach (ICD-10-PCS; principal; 2018-05-04 16:48)
DX: T81.31XA Disruption of external operation (surgical) wound, not elsewhere classified, initial encounter (principal); E87.1 Hypo-osmolality and hyponatremia; I10 Essential (primary) hypertension; Y83.8 Other surgical procedures as the cause of abnormal reaction of the patient, or of later complication, without mention of misadventure at the time of the procedure
CPT/HCPCS: 36415; 71045-TC-FY; 73560-TC-RT-FY; 80048; 80053; 85025; 85027; 85610; 85651; 86850; 86900; 86901; 87070; 87205; 93005; 94760; 97116-GP; 97162-GP; 99282-25; G0480; J0131; J0735